=== PATIENT | female | born 1975 | race Caucasian/White ===

== ENCOUNTER 2018-08-31 13:45 | Outpatient (REF) | payer MEDICAID, SELFPAY ==
[2018-08-31 21:56] LABS: Abs Immature Grans 0.03 k/cumm (0.0-0.09); Absolute Basophil Count 0.04 k/cumm (0.0-0.2); Absolute Eosinophil Count 0.51 k/cumm (0.0-0.7); Absolute Lymphocyte Count 2.38 k/cumm (1.2-3.4); Absolute Monocyte Count 0.78 k/cumm (0.11-0.7); Basophils % 0.3; Eosinophils % 4.3; HCT 39.9 % (36.0-46.0); Immature Grans % 0.3; Lymphocytes % 20.1; Mean Corp. HGB Concentration 32.6 g/dL (32.0-36.0); Mean Corpuscular Hemoglobin 29.8 pg (27.0-33.0); Mean Corpuscular Volume 91.5 fL (80-95); Mean Platelet Volume 9.9 fL (8.0-11.0); Monocytes % 6.6; Neutrophils % 68.4; Platelet Count 351 x1000/uL (130-400); RBC 4.36 m/cumm (4.00-5.20); RBC Distribution Width 13.1 % (11.7-14.6); White Blood Cell Count 11.86 k/cumm (4.4-10.8)
[2018-08-31 21:58] LABS: Absolute Neutrophil Count 8.11 k/cumm (1.2-6.7); Iron 49 ug/dL (50-175); Total Iron Binding Capacity 365 ug/dL (250-450); Transferrin Sat 13 % (15-50)
[2018-08-31 22:11] LABS: Ferritin 65 ng/mL (8-388); TSH (W/Ref FT4) 1.42 uIU/mL (0.358-3.74)
== END 2018-08-31 14:05 ==
LOC: NCHCN 13:45
PROVIDERS: PCP Internal Medicine; Visit Provider Internal Medicine
DX: R51 Headache (principal); N92.0 Excessive and frequent menstruation with regular cycle; R53.83 Other fatigue
CPT/HCPCS: 82728; 83540; 83550; 84443; 85025

== ENCOUNTER 2018-10-03 13:19 | Outpatient (CLI) | payer MEDICAID, SELFPAY ==
--- NOTE | 2018-10-03 13:33 | DI.RAD_ITS ---
SYMPTOMS/DIAGNOSIS: COUGH, R05 PA AND LATERAL CHEST: The heart size and pulmonary vasculature are within normal limits. The lungs are clear. No effusions or pneumothoraces are identified. Note is made of pectus excavatum deformity. The bones are intact. IMPRESSION: No acute pulmonary process.
== END 2018-10-03 13:39 ==
PROVIDERS: PCP Internal Medicine; Visit Provider Nurse Practitioner
DX: R05 Cough (principal)
CPT/HCPCS: 71046

== ENCOUNTER 2018-10-04 08:36 | Outpatient (CLI) | payer MEDICAID, SELFPAY ==
[2018-10-04 09:10] LABS: Abs Immature Grans 0.02 k/cumm (0.0-0.09); Absolute Basophil Count 0.06 k/cumm (0.0-0.2); Absolute Eosinophil Count 0.47 k/cumm (0.0-0.7); Absolute Lymphocyte Count 2.58 k/cumm (1.2-3.4); Absolute Monocyte Count 0.65 k/cumm (0.11-0.7); Absolute Neutrophil Count 5.72 k/cumm (1.2-6.7); Basophils % 0.6; Eosinophils % 4.9; HCT 38.1 % (36.0-46.0); HGB 12.5 g/dL (12.0-15.5); Immature Grans % 0.2; Lymphocytes % 27.2; Mean Corp. HGB Concentration 32.8 g/dL (32.0-36.0); Mean Corpuscular Hemoglobin 29.8 pg (27.0-33.0); Mean Corpuscular Volume 90.7 fL (80-95); Mean Platelet Volume 9.1 fL (8.0-11.0); Monocytes % 6.8; Neutrophils % 60.3; Platelet Count 358 x1000/uL (130-400); RBC Distribution Width 13.2 % (11.7-14.6)
[2018-10-04 09:56] LABS: D-Dimer 618 ng/mlFEU (<500)
== END 2018-10-04 08:56 ==
LOC: LBO 08:36 → NCHCO 08:39
PROVIDERS: PCP Internal Medicine; Visit Provider Nurse Practitioner Family
DX: R07.9 Chest pain, unspecified (principal); R05 Cough
CPT/HCPCS: 36415; 85025; 85379

== ENCOUNTER 2018-10-04 12:56 | Outpatient (CLI) | payer MEDICAID, SELFPAY ==
--- NOTE | 2018-10-04 13:30 | DI.CT_ITS ---
SYMPTOMS/DIAGNOSIS: CHEST PAIN, ELEVATED D DIMER PE CHEST CT: CT angiography was performed with multi slice acquisition and multi planar and 3D reconstruction. CT scan of the chest was performed according to the pulmonary embolus protocol. Comparison chest x-ray is 10/03/18. There is no evidence of a pulmonary embolus. The thoracic aorta is of normal caliber. No evidence of thoracic aortic aneurysm or dissection is present. The heart size is within normal limits. No significant pericardial effusion is seen. No evidence of right ventricular dysfunction is present. There is no thoracic adenopathy, pleural effusion or pneumothorax present. Dependent atelectatic changes are seen in the lung bases. No focal consolidating infiltrates are seen. The tracheobronchial tree is unremarkable. The bones are intact. IMPRESSION: Negative examination. No evidence of a pulmonary embolus, thoracic aortic dissection or aneurysm. No acute pulmonary process.
[2018-10-04] MEDS: Omnipaque 350 MG/ML 100 ML BTL IJ (13:52)
== END 2018-10-04 13:16 ==
PROVIDERS: PCP Internal Medicine; Visit Provider Nurse Practitioner Family
DX: R07.9 Chest pain, unspecified (principal); R79.1 Abnormal coagulation profile
CPT/HCPCS: 71275; J3490

== ENCOUNTER 2019-01-12 12:42 | Outpatient (REF) | payer MEDICAID, SELFPAY ==
--- NOTE | 2019-01-12 08:45 | PAPFT_PTH ---
PATIENT: Cara Colon LOC: N U#:[id number] AGE/SX: 43/F ROOM: RE01/12/[address]: DANYA Jolley : 1975 BED: DIS: 01/12/2019 SPEC #: [id number] RECD: 01/12/19 12:52 STATUS: MOSHE RELuisa #: [id number] LIDIA: 01/12/19 08:[address]: Mei Mcgowan DEPT: [facility] RECD BY: Harry Nelson ENTERED: 01/12/19 12:52 SP TYPE: PAPFT HÉCTOR DR: Jermaine Wallace Tissues: 1 - CX/ENDOCX FOR PAP SMEARS Procedures: PAP THIN PREP/[facility] Screening Comments: [id number]
[2019-01-13 13:46] LABS: Chlamydia Result Negative; GC Result Negative; Specimen Description CERVIX
== END 2019-01-12 13:02 ==
LOC: LBN 12:42
PROVIDERS: PCP Internal Medicine; Visit Provider Nurse Practitioner Family
DX: Z11.3 Encounter for screening for infections with a predominantly sexual mode of transmission (principal); Z12.4 Encounter for screening for malignant neoplasm of cervix; Z11.51 Encounter for screening for human papillomavirus (HPV)
CPT/HCPCS: 87491; 87591; 88142

== ENCOUNTER 2019-04-05 14:05 | Outpatient (REF) | payer MEDICAID, SELFPAY | END 2019-04-05 14:25 | LOC: LBN 14:05 | PROVIDERS: PCP Internal Medicine; Visit Provider Nurse Practitioner Women's Health | DX: R30.0 Dysuria (principal) | CPT/HCPCS: 87086 ==

== ENCOUNTER 2019-06-30 02:49 | Outpatient (CLI) | payer MEDICAID, SELFPAY ==
--- NOTE | 2019-06-30 | PFT_ITS ---
PULMONARY FUNCTION TEST REPORT Patient - Cara Colon DATE OF SERVICE 06/30/2019 REQUESTING PROVIDER Codi Loza NP INTERPRETATION OF STUDY Spirometry shows no evidence of obstructive airways disease. No bronchodilator testing was carried out. LUNG VOLUMES - Lung volumes show no evidence of restriction. DIFFUSION CAPACITY- Normal. AIRWAY RESISTANCE - Normal. IMPRESSION Normal pulmonary function study. Clinical correlation recommended. Rupa Rasmussen M.D. JUAN/ T- 07/06/2019
== END 2019-06-30 03:09 ==
PROVIDERS: PCP Internal Medicine; Visit Provider Nurse Practitioner Family
DX: R05 Cough (principal); R07.89 Other chest pain; Z87.891 Personal history of nicotine dependence
CPT/HCPCS: 94150; 94726; 94729; 94010

== ENCOUNTER 2019-07-05 00:39 | Outpatient (CLI) | payer MEDICAID, SELFPAY ==
--- NOTE | 2019-07-05 08:10 | DI.MRI_ITS ---
SYMPTOMS/DIAGNOSIS: WORSENING HEADACHES DESPITE TREATMENT, R51 MRI OF THE BRAIN: T 2 sagittal, T 1, T 2, FLAIR diffusion and gradient echo axial sequences were performed. No intracranial hemorrhage, mass or infarct is seen. The ventricles are normal in size. There is normal pelayo/white matter differentiation. There are no abnormal high signal lesions in the white matter or areas of restricted diffusion. The vascular flow voids appear intact. The orbits, sinuses and pituitary are unremarkable. IMPRESSION: Negative MRI of the brain.
== END 2019-07-05 00:59 ==
PROVIDERS: PCP Internal Medicine; Visit Provider Nurse Practitioner Adult Health
DX: R51 Headache (principal)
CPT/HCPCS: 70551

== ENCOUNTER 2019-07-28 15:29 | Outpatient (REF) | payer MEDICAID, SELFPAY | END 2019-07-28 15:49 | LOC: LBN 15:29 | PROVIDERS: PCP Internal Medicine; Visit Provider Obstetrics & Gynecology | DX: N39.0 Urinary tract infection, site not specified (principal) | CPT/HCPCS: 87086 ==

== ENCOUNTER 2019-09-06 17:48 | Outpatient (REF) | payer MEDICAID, SELFPAY ==
[2019-09-06 21:27] LABS: HCT 38.1 % (36.0-46.0); HGB 12.3 g/dL (12.0-15.5); Mean Corp. HGB Concentration 32.3 g/dL (32.0-36.0); Mean Corpuscular Hemoglobin 28.9 pg (27.0-33.0); Mean Corpuscular Volume 89.4 fL (80-95); Mean Platelet Volume 9.5 fL (8.0-11.0); Platelet Count 415 x1000/uL (130-400); RBC 4.26 m/cumm (4.00-5.20); White Blood Cell Count 9.04 k/cumm (4.4-10.8)
[2019-09-06 21:38] LABS: Anion Gap 13.4 mmol/L (3-11); BUN 15 mg/dL (7-18); CO2 20.6 mmol/L (21.0-32.0); CREATININE 0.82 mg/dL (0.55-1.02); Chloride 106 mmol/L (98-107); Glucose 80 mg/dL (70-100); Potassium 4.3 mmol/L (3.5-5.1); Sodium 140 mmol/L (136-145)
[2019-09-06 21:39] LABS: Iron 57 ug/dL (50-175); Total Iron Binding Capacity 367 ug/dL (250-450); Transferrin Sat 16 % (15-50)
== END 2019-09-06 18:08 ==
LOC: NCHCN 17:48
PROVIDERS: PCP Internal Medicine; Visit Provider Nurse Practitioner Family
DX: R05 Cough (principal); R55 Syncope and collapse
CPT/HCPCS: 80048; 85027; 83540; 83550

== ENCOUNTER 2020-07-17 12:02 | Outpatient (REF) | payer MEDICAID, SELFPAY | END 2020-07-17 12:22 | LOC: LBN 12:02 | PROVIDERS: PCP Internal Medicine; Visit Provider Obstetrics & Gynecology | DX: R30.0 Dysuria (principal) | CPT/HCPCS: 87086 ==

== ENCOUNTER 2020-09-16 16:55 | Outpatient (REF) | payer MEDICAID, SELFPAY ==
[2020-09-21 00:26] LABS: Patient Race White; SARS-CoV-2 RNA Undetected (Undetected); SARS-CoV-2 Specimen Source Nasal
== END 2020-09-16 17:15 ==
LOC: NCHCN 16:55
PROVIDERS: PCP Internal Medicine; Visit Provider Internal Medicine
DX: Z20.828 Contact with and (suspected) exposure to other viral communicable diseases (principal)
CPT/HCPCS: U0003

== ENCOUNTER 2020-10-09 07:12 | Observation (INO) | payer MEDICAID, SELFPAY ==
[2020-10-09] VITALS (49 sets, daily range): BP systolic 106–164; BP diastolic 66–120; PULSE 49–70; RESP 13–22; TEMP 36.4–36.7; O2SAT 91–100
--- NOTE | 2020-10-09 07:00 | RT.EKG_ITS ---
APPROVED REPORT Exam: Resting ECG Patient Location: E HR:55 bpm ECG Measurements Heart Rate 55 AXIS WY 189 P 19 QRSd 92 QRS 37 QT 477 T 9 QTc 457 Conclusion Sinus bradycardia...rate< 60 Nonspecific T abnormalities, anterior leads...T <-0.10mV, V2-V4
--- NOTE | 2020-10-09 07:29 | ED.GENADUL_ITS ---
Discharge Plan Disposition Patient Disposition: [facility] INPATIENT Condition: Stable Discharge Details Clinical Impression: Chest pain Admit Date/Time: 10/09/20 10:16 Admit Provider: Adan Deras Attending Provider: Adan Deras Primary Care Provider: Jermaine Wallace ED Provider: Thang Horne Medical Decision Making <Marvin Iglesias MD - Last Filed: 10/09/20 07:50> 44 yo female with hx of gerd, migraines, smoker who comes in with chest pain radiating to the back and epigastric area that woke her from sleep around 5am and has no prior cardiac history. She states she went to bed feeling well and denies recent cough, chills, fevers. She denies any significant dyspnea. She states she feels a pressure in the anterior chest radiating to the back and also a knot in the epigastric area with nausea. .She has no diaphoresis and arrives HD stable speaking in full sentences. She has soft abdomen with mild tenderness in the epigastric region. She has clear lungs without murmurs. No jvd, leg swelling or calf tenderness. Her presentation could be due to an nstemi, will obtain troponin. Given the pain radiates to the back and abdomen concern for possible dissection, will obtain CTA. No hypoxia, tachycardia, pleuritic pain or evidence of dvt on exam so doubt PE. Other potential causes include gerd, gastritis and also possible esophageal spasm but will evaluate for more serious life threatening causes of her symptoms patient signed out to oncoming provider pending labs, imaging results and disposition Differential Diagnosis Differential Diagnosis: nstemi, gerd, pancreatitis, dissection Medical Records Medical records reviewed: Yes I reviewed the patient's medical records. ECG Data Attestation: I personally reviewed and interpreted this ECG (s) as follows: Prior ECG tracings: not available for review Interpretation: sinus bradycardia rate of 55 pr 189, qtc 457 flipped t waves in the anterior leads no olds to compare it to <Thang Horne MD - Last Filed: 10/09/20 12:40> Received signout from Dr Iglesias, please see his note regarding details of initial presentation, exam, plan of care. Pain improved with fentanyl, zofran. Repeat EKG with persistent T wave inversions, unchanged. CT chest: No acute findings, see formal report Labs: White count 11, hematocrit 40, platelets 383. Chemistries unremarkable. AST 13, ALT 13, lipase 89, troponin negative, BNP 97 She does have some mild persistent discomfort rated 1-2 out of 10, down from 8 out of 10. Patient given aspirin. I feel she is best served by admission for further observation and management. Lab Data Lab results reviewed: Yes I reviewed the patient's lab results. Labs: Laboratory Results - last 24 hr 10/09/20 10/09/20 10/09/20 07:20 07:20 07:20 WBC 11.32 H RBC 4.42 Hgb 13.2 Hct 40.8 MCV 92.3 MCH 29.9 MCHC 32.4 RDW 13.9 Plt Count 383 MPV 8.8 Immature Gran % 0.4 Neutrophils % 62.5 Lymphocytes % 22.3 Monocytes % 9.2 Eosinophils % 4.9 Basophils % 0.7 Nucleated RBC % 0 Absolute Neutrophils 7.08 H Absolute Lymphocytes 2.52 Absolute Monocytes 1.04 H Absolute Eosinophils 0.55 Absolute Basophils 0.08 PT 9.5 INR 0.9 APTT 24.7 Sodium 137 Potassium 4.1 Chloride 103 Carbon Dioxide 27.1 Anion Gap 6.9 BUN 14 Creatinine 1.08 H Estimated GFR/1.73 m2 55.64 Glucose 114 H Calcium 9.0 Magnesium 2.0 Total Bilirubin 0.2 AST 13 L ALT 13 L Alkaline Phosphatase 80 Troponin I < 0.05 NT-Pro-B Natriuret Pep 97 Total Protein 7.8 Albumin 3.6 Lipase 89 HPI <Marvin Iglesias MD - Last Filed: 10/09/20 07:50> General Mode of arrival: ambulatory . Date/Time Provider Initiated Documentation: 10/09/20 07:13 . Limitations to Documentation: no limitations . Information obtained by: patient . History of Present Illness 44 year old F presents to the emergency department with the chief complaint of chest pain, described as moderate, Patient started experiencing this hour(s) (2) and it has been constant. No relieving factors improve symptom(s), No exacerbating factors reported . Patient did receive the following treatments prior to arrival, none Related Data Home Medications Medication Instructions Recorded Confirmed escitalopram oxalate 20 mg tablet 20 mg PO DAILY 01/12/19 10/09/20 triamcinolone acetonide 0.1 % 1 applic TP BID 04/05/19 10/09/20 topical cream levonorgestrel 20 mcg/24 hours (6 1 device IY ONCE 04/18/19 10/09/20 yrs) 52 mg intrauterine device hydroxyzine HCl 10 mg tablet 20 mg PO HS tab 08/08/19 10/09/20 cholecalciferol (vitamin D3) 25 1,000 unit PO DAILY 12/14/19 10/09/20 mcg (1,000 unit) tablet omeprazole 20 mg capsule,delayed 20 mg PO DAILY cap 06/13/20 10/09/20 release erenumab-aooe 140 mg/mL 140 mg SC QMONTH #1 ml 09/11/20 10/09/20 subcutaneous auto-injector prochlorperazine maleate 5 - 10 mg PO Q8H PRN 10/09/20 10/09/20 Previous Rx's Medication Instructions Recorded erenumab-aooe 140 mg/mL 140 mg SC QMONTH #1 ml 09/11/20 subcutaneous auto-injector Allergies Allergy/AdvReac Type Severity Reaction Status Date / Time Purple Makeup AdvReac Intermediate Eyes blew Uncoded 10/09/20 07:22 up General Stated Complaint: Chest Pain DESIRE: 2 Review of Systems <Marvin Iglesias MD - Last Filed: 10/09/20 07:50> All systems reviewed & are unremarkable except as noted in HPI and below Constitutional Constitutional: Denies chills, Denies fever(s) and Denies weakness Cardiovascular Cardiovascular: Denies dyspnea Respiratory Respiratory: Denies cough and Denies dyspnea Musculoskeletal Musculoskeletal: Denies joint swelling Neurologic Neurologic: Denies weakness Psychiatric Psychiatric: Denies depression PFSH <Marvin Iglesias MD - Last Filed: 10/09/20 07:50> Medical History (Updated 10/09/20 @ 07:35 by Marvin Iglesias MD) Anxiety Depression GERD (gastroesophageal reflux disease) Hip pain, right Menorrhagia Migraine headache without aura Personal history of cervical dysplasia (06/08/13) 2010 TERRY II Family History Mother Essential hypertension Breast cancer HER2 Grandmother Pancreatic cancer Maternal Diabetes Grandmother Ovarian cancer paternal Daughter Migraines Social History Smoking/Tobacco Use Status: Current every day Tobacco Type: cigarettes Smoking risk assessment performed?: Yes Alcohol Intake: current Alcohol Intake frequency: 0-2 drinks per day Alcohol type: beer Drug use: Never Substance use type: does not use Current gender identity: female Seatbelt use: always Do you feel safe at home: Yes Do you feel safe in your relationship?: Yes Female Reproductive History Menstrual Duration of menses: 8-10 days control method: progestin IUCD and other History History 2 Para 2 Hx # Term Pregnancies Multiple births Hx # Pregnancies Ectopic pregnancies AB induced Hx Number of Living Children AB spontaneous Exam <Marvin Iglesias MD - Last Filed: 10/09/20 07:50> Const General: no acute distress Orientation: alert HENMT Head: normal to inspection Ears: external ears normal General nose exam: external nose normal Mouth: moist mucous membranes Eyes General: appearance normal, both eyes and all related structures Neck Neck: normal visual inspection Resp Effort & Inspection: normal respiratory effort and able to speak in complete sentences Cardio Rate: regular rate GI Palpation: soft Skin General skin exam: no rashes or lesions noted Neuro General: patient alert and patient oriented x3 Extrem General: normal to inspection Psych Mental Status: mental status grossly normal Course <Marvin Iglesias MD - Last Filed: 10/09/20 07:50> Vital Signs Vital signs: Vital Signs Temperature 36.4 C L 10/09/20 07:16 Pulse 65 10/09/20 07:16 Respiratory Rate 18 10/09/20 07:16 Blood Pressure 164/89 H 10/09/20 07:16 Pulse Oximetry 100 10/09/20 07:16 Temperature 36.4 C L 10/09/20 07:16 Temperature Source Temporal Artery Scan 10/09/20 07:16 Pulse 65 10/09/20 07:16 Respiratory Rate 18 10/09/20 07:16 Respiratory Effort Non-Labored 10/09/20 07:22 Respiratory Depth Normal 10/09/20 07:22 Respiratory Pattern Normal 10/09/20 07:22 Blood Pressure 164/89 H 10/09/20 07:16 Blood Pressure Position Supine 10/09/20 07:16 Pulse Oximetry 100 10/09/20 07:16 Oxygen Delivery Method Room Air 10/09/20 07:16 Oxygen Flow Rate 0 10/09/20 07:16 Pain Level 8 10/09/20 07:16 Sign Out <Marvin Iglesias MD - Last Filed: 10/09/20 07:50> Sign Out Data: Sign Out Comment: chest pain radiating to the back, pending labs and imaging, dispo Last updated by Marvin Iglesias MD at 10/09/20 07:35
[2020-10-09] MEDS: Ondansetron 4 MG/2 ML VIAL IVP (07:34)
[2020-10-09 07:37] LABS: Abs Immature Grans 0.05 10^3/uL (0.0-0.06); Absolute Basophil Count 0.08 10^3/uL (0.0-0.2); Absolute Monocyte Count 1.04 10^3/uL (0.1-0.8); Basophils % 0.7; Eosinophils % 4.9; HCT 40.8 % (36.0-46.0); HGB 13.2 g/dL (11.2-15.7); Immature Grans % 0.4; Lymphocytes % 22.3; MCH 29.9 pg (27.0-33.0); MCHC 32.4 % (32.0-36.0); MCV 92.3 fL (80-95); MPV 8.8 fL (8.0-11.0); Monocytes % 9.2; Neutrophils % 62.5; Nucleated RBC 0 %; Platelet Count 383 10^3/uL (130-400); RBC 4.42 10^6/uL (3.93-5.22); RDW 13.9 % (11.7-14.6); WBC 11.32 10^3/uL (4.4-10.8)
[2020-10-09] MEDS: fentaNYL 100 MCG/2 ML VIAL 50 MCG IVP (07:39)
[2020-10-09 07:41] LABS: Absolute Eosinophil Count 0.55 10^3/uL (0.0-0.7); Absolute Lymphocyte Count 2.52 10^3/uL (1.2-3.4); Absolute Neutrophil Count 7.08 10^3/uL (1.2-6.7)
[2020-10-09 07:48] LABS: INR 0.9 (0.9-1.1); PTT Activated 24.7 sec (21.0-27.5); Prothrombin Time 9.5 sec (9.3-11.0)
[2020-10-09 07:59] LABS: ALT 13 U/L (14-59); AST 13 U/L (15-37); Albumin 3.6 g/dL (3.4-5.0); Alkaline Phosphatase 80 U/L (46-116); Anion Gap 6.9 mmol/L (3-11); BUN 14 mg/dL (7-18); Bilirubin, Total 0.2 mg/dL (0.2-1.0); CO2 27.1 mmol/L (21.0-32.0); CREATININE 1.08 mg/dL (0.55-1.02); Chloride 103 mmol/L (98-107); Estimated GFR 55.64 (mL/min/1.73m2); Glucose 114 mg/dL (74-106); Lipase 89 U/L (73-393); NT-proBNP 97 pg/mL (<300); Potassium 4.1 mmol/L (3.5-5.1); Sodium 137 mmol/L (136-145); Total Protein 7.8 g/dL (6.4-8.2); Troponin I < 0.05 ng/mL (<0.06)
--- NOTE | 2020-10-09 08:00 | RT.EKG_ITS ---
APPROVED REPORT Exam: Resting ECG Patient Location: E HR:61 bpm ECG Measurements Heart Rate 61 AXIS MI 212 P -8 QRSd 92 QRS 36 QT 453 T 5 QTc 457 Conclusion Sinus rhythm Borderline T abnormalities, diffuse leads...T flat/neg
--- NOTE | 2020-10-09 08:00 | DI.CT_ITS ---
EXAM: CT THORAX ABD/PEL CTA CLINICAL HISTORY: chest pain radiating to the back and epigastrum. TECHNIQUE: Imaging Protocol: Axial CT angiography was performed with multi-slice acquisition and m ulti-planar and/or 3D reconstructions. CONTRAST MATERIAL: Intravenous: Omnipaque 350 Contrast volume:100 ml Oral: None FINDINGS: CHEST: Pulmonary arteries: No intraluminal filling defects. LUNGS: Clear. No infiltrates or nodules. No pleural effusions. MEDIASTINUM: There is no hilar nor mediastinal adenopathy. Visualized thyroid unremarkable. CARDIAC: Heart size is normal. There is no pericardial effusion.Caliber of the thoracic aorta is wit hin normal limits. No evidence of aortic dissection. OSSEOUS: No significant osseous lesions.. ABDOMEN: There is no ascites. LIVER: There are no focal hepatic lesions nor dilatation of intrahepatic ducts. GALLBLADDER/BILIARY: No obvious gallbladder pathology. CBD is not dilated. PANCREAS: No evidence of pancreatic mass nor dilatation of the pancreatic duct. SPLEEN: Spleen is not enlarged. There are no intrasplenic lesions. Splenic and portal veins are melendez nt. ADRENALS: There are no significant adrenal masses. KIDNEYS: No calculi nor hydronephrosis. No solid renal masses. No cysts evident. ABDOMINAL AORTA: Abdominal aorta is not enlarged and there is no kwangejpkvwveiw-qjzv-tahvrc adenopat hy. Aortoiliac segments are patent. ABDOMINAL WALL/GI: No evidence of signature anterior abdominal wall hernia. No bowel obstruction. PELVIS: LYMPH NODES: There is no intrapelvic nor inguinal adenopathy. GI: No evidence of appendicitis.No evidence of sigmoid diverticulitis. URINARY BLADDER: No calculi nor masses evident REPRODUCTIVE: IUD is noted in the uterine cavity. No adnexal masses nor free fluid in the cul-de-sac . OSSEOUS: No significant osseous lesions. IMPRESSION: 1. No evidence of pulmonary embolus nor pulmonary infarction. 2. No pleural effusions. No aneurysm no evidence of aortic dissection 3. No significant acute findings in the abdomen and pelvis. 4. IUD noted in the uterine cavity. RADIATION DOSE DELIVERED: 1,194.98mGy.cm Total DLP DATA REPOSITORY: All CT scans at this facility are submitted to the National Radiology Data Registry (NRDR) Dose Index Registry (DIR) with the [employer] (ACR). RADIATION OPTIMIZATION: All CT scans at this facility use at least one of these dose optimization te chniques: automated exposure control; mA and/or kV adjustment per patient size (includes targeted exa ms where dose is matched to clinical indication); or iterative reconstruction.
[2020-10-09] MEDS: Normal Saline - Diluent 50 ML VIAL IV (08:12)
[2020-10-09] MEDS: Omnipaque 350 MG/ML 100 ML BTL IJ (08:13)
[2020-10-09] MEDS: Aspirin 325 MG TAB PO (08:55)
[2020-10-09 09:50] LABS: Troponin I < 0.05 ng/mL (<0.06)
[2020-10-09 11:13] LABS: Hemoglobin A1C 5.3 % (<5.7)
[2020-10-09 11:14] LABS: Calculated LDL 88 mg/dL (<100); Cholesterol 189 mg/dL (<200); HDL Cholesterol 79 mg/dL (40-60); Triglyceride 111 mg/dL (<150)
[2020-10-09] MEDS: Acetaminophen 325 MG TAB PO ×2 (12:17→17:31)
[2020-10-09] MEDS: Enoxaparin 40 MG/0.4 ML SYR SC (12:17)
[2020-10-09] MEDS: Prochlorperazine 5 MG TAB PO (13:52)
[2020-10-09 14:19] LABS: Troponin I < 0.05 ng/mL (<0.06)
--- NOTE | 2020-10-09 14:51 | HPE_ITS ---
Date of service: 10/09/20 Time of Service: 14:51 Assessment and Plan Assessment and plan (1) Chest pain: Status: Acute Assessment and plan: Atypical chest pain suggestive more of GERD or gallbladder disease. CT scan of her abdomen did not show any gallstones nor any pericholecystic fluid. At this point I am leaning more towards GERD. Patient will have a stress MPI treadmill study in the morning if this is negative she will be discharged home for follow-up with GI or surgery for an EGD. Qualifiers: Chest pain type: unspecified Qualified Code(s): R07.9 - Chest pain, uns pecified History of Present Illness History of Present Illness Chief Complaint: Chest pain Narrative: 44-year-old female smoker with history of depression anxiety disorder as well as symptoms referrable to GERD but without a formal diagnosis. Patient presents emergency department with acute substernal chest pain described as a pressure with radiation into the interscapular area. There was no associated dyspnea. She did have nausea but without vomiting and no abdominal pain. Patient states that her usual symptoms of GERD or not heartburn or pain but more coughing after heavy meals particularly if she eats before lying down. She says if she does not take her omeprazole she will wake up coughing during the night. Occasionally she will have water brash symptoms. She has not had a formal evaluation such as an EGD. Patient is fairly active gets mildly dyspneic if she has to go up and down her stairs several times but has no exertional chest pain or pressure. She denies any personal history of diabetes mellitus or hypertension or ischemic heart disease. She is a smoker of about a third of a pack per day. She began smoking at the age of 20 but had quit for several years and only recently restarted smoking. Her maternal grandmother did have angina beginning in her 60s. Her father had history of gallbladder disease including gallstone pancreatitis. Her brother has a history of colitis. Evaluation in the ER included EKG as well as routine labs as well as the CT angiogram of her chest abdomen and pelvis. CT of the chest abdomen pelvis showed no pulmonary embolism no pleural effusions and no aortic aneurysm or dissection and no acute findings in her abdomen or pelvis. She has an IUD in the uterine cavity. There is no evidence of diverticulitis or appendicitis and no biliary ductal dilatation and no hepatic lesions and no gallbladder patho logy. Labs include CBC showed a borderline elevated white count of 11,300 no anemia. CMP demonstrated normal liver enzymes and a normal lipase of 89. Serial troponin I levels have been negative x3 sets. Electrolytes BUN and creatinine were unremarkable. Patient is admitted to the medical/surgical floor on telemetry over for overnight monitoring and scheduling of a stress MPI study in the morning. Her EKG on admission showed nonspecific T wave abnormalities in the anterior precordial leads V1 through V3. Review of Systems All systems reviewed & are unremarkable except as noted in HPI and below PFSH Medical History Anxiety Depression Family history of breast cancer (06/04/16) Mother Dx at 59 GERD (gastroesophageal reflux disease) Not formally diagnosed by any endoscopy. Empirically treated with omeprazole. Hip pain, right Menorrhagia Migraine headache without aura Personal history of cervical dysplasia (06/08/13) 2010 TERRY II Family History Mother Essential hypertension Breast cancer HER2 Grandmother Pancreatic cancer Maternal Diabetes Grandmother Ovarian cancer paternal Daughter Migraines Social History Smoking/Tobacco Use Status: Current every day Tobacco Type: cigarettes Smoking risk assessment performed?: Yes Alcohol Intake: current Alcohol Intake frequency: 0-2 drinks per day Alcohol type: beer Drug use: Never Substance use type: does not use Current gender identity: female Seatbelt use: always Do you feel safe at home: Yes Do you feel safe in your relationship?: Yes Female Reproductive History Menstrual Duration of menses: 8-10 days control method: progestin IUCD and other History History 2 Para 2 Hx # Term Pregnancies Multiple births Hx # Pregnancies Ectopic pregnancies AB induced Hx Number of Living Children AB spontaneous Meds Home Medications and Allergies Home Medications Medication Instructions Recorded Confirmed Type escitalopram oxalate 20 mg tablet 20 mg PO DAILY 01/12/19 10/09/20 History triamcinolone acetonide 0.1 % 1 applic TP BID 04/05/19 10/09/20 History topical cream levonorgestrel 20 mcg/24 hours (6 1 device IY ONCE 04/18/19 10/09/20 History yrs) 52 mg intrauterine device hydroxyzine HCl 10 mg tablet 20 mg PO HS tab 08/08/19 10/09/20 History cholecalciferol (vitamin D3) 25 1,000 unit PO DAILY 12/14/19 10/09/20 History mcg (1,000 unit) tablet omeprazole 20 mg capsule,delayed 20 mg PO DAILY cap 06/13/20 10/09/20 History release erenumab-aooe 140 mg/mL 140 mg SC QMONTH #1 ml 09/11/20 10/09/20 Rx subcutaneous auto-injector prochlorperazine maleate 5 - 10 mg PO Q8H PRN 10/09/20 10/09/20 History Allergies Allergy/AdvReac Type Severity Reaction Status Date / Time Purple Makeup AdvReac Intermediate Eyes blew Uncoded 10/09/20 07:22 up Exam Narrative Exam Narrative: Young female who was napping when I walked in the room but easily awakened and was alert and oriented person place time circumstance. HEENT is unremarkable. Neck is supple nontender no cervical adenopathy Carotids normal pulses no bruits. Lungs clear to auscultation Heart regular rate and rhythm without murmur rub or gallop Abdomen soft some mild epigastric tenderness without guarding or rebound tenderness. No palpable masses no organomegaly and no bruits Lower extremities without peripheral cyanosis or edema Neuro exam grossly intact Results Labs Result diagrams: 10/09/20 07:20 10/09/20 07:20 Labs: Laboratory Results - last 24 hr 10/09/20 10/09/20 10/09/20 07:20 07:20 07:20 WBC 11.32 H RBC 4.42 Hgb 13.2 Hct 40.8 MCV 92.3 MCH 29.9 MCHC 32.4 RDW 13.9 Plt Count 383 MPV 8.8 Immature Gran % 0.4 Neutrophils % 62.5 Lymphocytes % 22.3 Monocytes % 9.2 Eosinophils % 4.9 Basophils % 0.7 Nucleated RBC % 0 Absolute Neutrophils 7.08 H Absolute Lymphocytes 2.52 Absolute Monocytes 1.04 H Absolute Eosinophils 0.55 Absolute Basophils 0.08 PT 9.5 INR 0.9 APTT 24.7 Sodium 137 Potassium 4.1 Chloride 103 Carbon Dioxide 27.1 Anion Gap 6.9 BUN 14 Creatinine 1.08 H Estimated GFR/1.73 m2 55.64 Glucose 114 H Hemoglobin A1c Calcium 9.0 Magnesium 2.0 Total Bilirubin 0.2 AST 13 L ALT 13 L Alkaline Phosphatase 80 Troponin I < 0.05 NT-Pro-B Natriuret Pep 97 Total Protein 7.8 Albumin 3.6 Triglycerides Total Cholesterol LDL Cholesterol, Calc HDL Cholesterol Lipase 89 10/09/20 10/09/20 10/09/20 07:20 07:20 09:22 WBC RBC Hgb Hct MCV MCH MCHC RDW Plt Count MPV Immature Gran % Neutrophils % Lymphocytes % Monocytes % Eosinophils % Basophils % Nucleated RBC % Absolute Neutrophils Absolute Lymphocytes Absolute Monocytes Absolute Eosinophils Absolute Basophils PT INR APTT Sodium Potassium Chloride Carbon Dioxide Anion Gap BUN Creatinine Estimated GFR/1.73 m2 Glucose Hemoglobin A1c 5.3 Calcium Magnesium Total Bilirubin AST ALT Alkaline Phosphatase Troponin I < 0.05 NT-Pro-B Natriuret Pep Total Protein Albumin Triglycerides 111 Total Cholesterol 189 LDL Cholesterol, Calc 88 HDL Cholesterol 79 Lipase 10/09/20 10/09/20 10:23 13:47 WBC RBC Hgb Hct MCV MCH MCHC RDW Plt Count MPV Immature Gran % Neutrophils % Lymphocytes % Monocytes % Eosinophils % Basophils % Nucleated RBC % Absolute Neutrophils Absolute Lymphocytes Absolute Monocytes Absolute Eosinophils Absolute Basophils PT INR APTT Sodium Potassium Chloride Carbon Dioxide Anion Gap BUN Creatinine Estimated GFR/1.73 m2 Glucose Hemoglobin A1c Calcium Magnesium Total Bilirubin AST ALT Alkaline Phosphatase Troponin I Cancelled < 0.05 NT-Pro-B Natriuret Pep Total Protein Albumin Triglycerides Total Cholesterol LDL Cholesterol, Calc HDL Cholesterol Lipase Last Vital Signs Temp 36.5 C 10/09/20 11:25 Pulse 64 10/09/20 12:14 Resp 18 10/09/20 11:25 BP 128/78 10/09/20 11:25 Pulse Ox 99 10/09/20 11:25 COVID-19 Screening Have you, or household traveled for leisure in last 14 days?: No Had IN PERSON contact w/suspected or confirmed C-19 person: No
[2020-10-09] MEDS: hydrOXYzine HCL 10 MG TAB 20 MG PO (21:21)
[2020-10-09] MEDS: Normal Saline Flush 10 ML SYR IVP (21:23)
[2020-10-10 03:53] VITALS: BP 119/72; PULSE 55; RESP 17; TEMP 36.3; O2SAT 97
--- NOTE | 2020-10-10 07:00 | DI.NM_ITS ---
APPROVED REPORT Exam: Pharmacologic Patient Location: In-Patient Room/Bed: 214 Stress Nurse: Heaven Shaver RN BMI: 28.81 Baseline Rhythm: Sinus Rhythm Indications: Chest pain. Medical History Medical History: Anxiety, Depression, GERD, Migraines. Cardiac Medications: Omeprazole. Allergies: No known drug allergies Cardiac Risk Factors: Smoking (current) Previous Cardiac Procedures: None. Pretest Chest Pain Characteristics: None. Exercise History: Sedentary Physical Disabilities: None. Lung Sounds: Clear to auscultation Heart Sounds: Regular Stress Test Details Test: Exercise stress converted to pharmacologic stress due to failure to obtain a diagnostic stress test. Reason for pharmacologic stress test: physical limitation. Nuclear Acquisition: Rest Tc-99m/Stress Tc-99m 1 day Rest Isotope: Tc-99m Sestamibi. Dose: 11.5 Date: 10/10/2020 Injection Time: 1330 Stress Isotope: Tc-99m Sestamibi. Dose: 33.0 Date: 10/10/2020 Injection Time: 1535 HR Resting HR Supine: 61 bpm Max Heart Rate (APMHR): 178 bpm Resting HR Standin bpm Target HR (85% APMHR): 151 bpm Max HR Achieved: 146 bpm % of APMHR: 82 Recovery HR: 88 bpm HR response to stress: Normal HR response to stress BP Resting BP Supine: 136/68 mmHg Resting BP Standin/70 mmHg Max BP: 140/72 mmHg Recovery BP: 122/68 mmHg BP response to stress: Normal blood pressure response to stress. ECG Resting ECG: Sinus Rhythm Ectopy: None. Stress ECG: Sinus Tachycardia ST Change: No significant ST segment changes noted. Arrhythmia: None. Recovery ECG: Sinus Rhythm Recovery ST Change: No significant ST segment changes noted. Recovery Arrhythmia: None. Clinical Reason for Termination: Dyspnea Stress Symptoms: Dyspnea Exercise duration: 6 min40 sec Highest Stage Reached: Stage 3: 3.4 mph at 14% grade. Exercise capacity: 8.54 METs Stress ECG Conclusion 1. Patient exercised for 7 minutes (9 METS). This was converted to a pharmacological stress test as patient was unable to reach target heart rate. 2. The EKG portion of this exam is nondiagnostic. Stress Test Summary STAGE Time (mins) Speed (mph) Grade (%) HR BP SYMPTOMS METS Supine 61 136/68 Standing 78 124/70 1 3 1.7 10 104 4.6 2 6 2.5 12 140 136/68 SOB. 7 1 min post Lexiscan injection 103 140/72 Dizziness 3 min post Lexiscan injection 91 138/70 Symptoms resolved. 6 min post Lexiscan injection 88 122/70 MPI Conclusion The patient's ejection fraction was 54% with stress. There were no wall motion abnormalities. The interpretation of the study is greatly affected by significant bowel uptake. There is no evidence of ischemia on the imaging portion of the exam. This likely represents a normal SPECT stress test.
[2020-10-10 07:04] VITALS: PULSE 54
[2020-10-10 07:45] VITALS: BP 104/66; PULSE 63; RESP 17; TEMP 37.2; O2SAT 96
[2020-10-10 08:28] LABS: COVID-19 RT-PCR UVMMC Result Negative (Negative)
[2020-10-10 11:24] VITALS: BP 118/73; PULSE 67; RESP 18; TEMP 36.9; O2SAT 99
--- NOTE | 2020-10-10 12:15 | PGE_ITS ---
Date of Service Date of service: 10/10/20 Time of Service: 12:15 Assessment and Plan Assessment and plan (1) Chest pain: Status: Acute Assessment and plan: Atypical chest pain suggestive more of GERD or gallbladder disease. CT scan of her abdomen did not show any gallstones nor any pericholecystic fluid. At this point I am leaning more towards GERD. Patient will have a stress MPI treadmill study this afternoon about 1:30 PM if this is negative she will be discharged home for follow-up with GI or surgery for an EGD. Qualifiers: Chest pain type: unspecified Qualified Code(s): R07.9 - Chest pain, unspecified Subjective Subjective Interval history since last seen: Patient denies any chest pain or pressure since admission and no shortness of breath. All of her troponins were negative. Patient is scheduled for a stress MPI treadmill for this afternoon at 1:30 PM. Assuming that this test is normal she will be discharged this afternoon and will need follow-up with her PCP to get referral to GI or surgery services for an EGD to evaluate her GERD. Patient is advised to double up her omeprazole to 40 mg daily pending getting an EGD. Exam Narrative Exam Narrative: Middle-age female who is alert and oriented person place time circumstance very pleasant in no discomfort. Lungs are clear to auscultation Heart regular rate and rhythm without murmur rub or gallop Abdomen soft nontender nondistended. Objective Last Vital Signs Temp 37.2 C 10/10/20 07:45 Pulse 63 10/10/20 07:45 Resp 17 10/10/20 07:45 BP 104/66 10/10/20 07:45 Pulse Ox 96 10/10/20 07:45 Laboratory Results - last 24 hr 10/09/20 10/09/20 10:30 13:47 Troponin I < 0.05 COVID-19 PCR Negative Nasopharyn COVID-19 PCR Not Applicable Ref Test Perform Site [facility] lab
[2020-10-10] MEDS: Enoxaparin 40 MG/0.4 ML SYR SC (12:47)
[2020-10-10] MEDS: Acetaminophen 325 MG TAB PO (14:21)
[2020-10-10] MEDS: Regadenoson 0.4 MG/5 ML SYR IVP (15:46)
[2020-10-10 16:24] VITALS: BP 113/68; PULSE 73; RESP 20; TEMP 36.8; O2SAT 97
--- NOTE | 2020-10-10 16:54 | DSE_ITS ---
Date of service: 10/10/20 Time of Service: 16:54 DS: Diagnosis Discharge Diagnosis (1) Chest pain: Status: Acute Asessment and Plan: serial troponins negative. MPI conclusion: EF 54%, no wall motion abnormalities no evidence of ischemia on imaging portion of exam, interpretation of study greatly affected by significant bowel uptake likely represents a normal SPECT stress test Discharge Plan Disposition Patient Disposition: HOME Condition: Stable Discharge Details Reason For Visit: CHEST PAIN Admit Date/Time: 10/09/20 10:16 Admit Provider: Adan Rees Attending Provider: Adan Rees Primary Care Provider: Jermaine Wallace Hospital Course Hospital Course: patient presented to ED for substernal chest pain, ED work up showed negative troponin and EKG as well as routine labs as well as the CT angiogram of her chest abdomen and pelvis. CT of the chest abdomen pelvis showed no pulmonary embolism no pleural effusions and no aortic aneurysm or dissection and no acute findings in her abdomen or pelvis. Her EKG on admission showed nonspecific T wave abnormalities in the anterior precordial leads V1 through V3. she was referred to observation on telemetry. remained hemodynamically stable with negative serial troponins. She underwent an MPI stress which showed no WMA, EF 54%, likely representing a normal study. She will be discharged home, advised to double her omeprazole and f/u outpatient with pcp for further work up, including EGD discussed with DR Rees Home Meds and New Rx's Prescriptions: Continued escitalopram oxalate [Lexapro] 20 mg tablet 20 mg PO DAILY RF: 0 cholecalciferol (vitamin D3) [Vitamin D3] 25 mcg (1,000 unit) tablet 1,000 unit PO DAILY RF: 0 Aimovig Autoinjector 140 mg/mL auto-injector 140 mg SC QMONTH Qty: 1 RF: 11 Mirena 20 mcg/24 hours (5 yrs) 52 mg intrauterine device 1 device IY ONCE RF: 0 hydroxyzine HCl 10 mg tablet 20 mg PO HS RF: 0 triamcinolone acetonide 0.1 % cream 1 applic TP BID RF: 0 prochlorperazine maleate 5 mg tablet 5 - 10 mg PO Q8H PRN (Reason: Headache) RF: 0 Changed omeprazole 20 mg capsule,delayed release(DR/EC) 40 mg PO DAILY Qty: 0 RF: 0 Discharge Instructions Instructions: Chest Pain (DC), GERD (Gastroesophageal Reflux Disease) (DC) Additional Instructions: double your omeprazole. do not eat within 2 hours of bedtime. Referrals: Jermaine Wallace MD [Primary Care Provider] - Activity:: Activity as Tolerated Equipment/Supplies:: No Equipment Needed Diet:: As Tolerated Discharge Orders Discharge Orders: Discharge Order (Routine); Ordered 10/10/20 Ordered By: Marry Craig DS: Summary Status at Discharge Functional status at discharge: independent ambulation Overall status at discharge: patient is back to baseline Mental Status: mental status grossly normal Speech and Movement: speech and movement normal Mood: congruent mood Affect: normal affect Exam Const General: cooperative, healthy appearing, comfortable and no acute distress Nutritional Appearance: overweight Orientation: alert, awake and oriented x3 HENMT Head: normal to inspection, normocephalic and atraumatic Resp Effort & Inspection: normal respiratory effort Cardio Rate: regular rate Rhythm: regular rhythm GI Inspection: normal to inspection Skin General skin exam: no rashes or lesions noted Neuro General: patient alert, patient awake, patient oriented x3 and moves all extremities Extrem General: normal to inspection and no pedal edema Psych Mental Status: mental status grossly normal Speech and Movement: speech and movement normal Mood: congruent mood Affect: normal affect DS: Data Vitals/I&O Vitals and I&O: Vital Signs Temperature 36.8 C 10/10/20 16:24 Temperature Source Tympanic 10/10/20 16:24 Pulse 73 10/10/20 16:24 Pulse Rhythm Regular 10/10/20 16:10 Pulse 52 L 10/09/20 11:01 Respiratory Rate 20 10/10/20 16:24 Respiratory Effort Non-Labored 10/10/20 16:10 Respiratory Depth Normal 10/10/20 16:10 Respiratory Pattern Normal 10/10/20 16:10 Blood Pressure 113/68 10/10/20 16:24 Blood Pressure Mean 82 10/09/20 11:01 Blood Pressure Position Supine 10/09/20 07:16 Pulse Oximetry 97 10/10/20 16:24 Oxygen Delivery Method Room Air 10/10/20 16:24 Oxygen Flow Rate 0 10/10/20 16:24 Pain Level 0 10/10/20 16:24 Intake & Output 10/09/20 10/10/20 10/10/20 23:59 11:59 23:59 Intake Total 490 / 500 480 / 480 Balance 490 / 500 480 / 480 Weight 83.6 kg Intake: IV Oral 480 / 480 480 / 480 Other: Comment pt independent with voiding RN did not assess Voiding Methods Toilet Toilet Data Completed and Pending Labs on day of discharge: Labs from last 24 hours 10/09/20 10:30 COVID-19 PCR Negative Nasopharyn COVID-19 PCR Not Applicable Ref Test Perform Site [facility] Medical History Anxiety Depression Family history of breast cancer (06/04/16) Mother Dx at 59 GERD (gastroesophageal reflux disease) Not formally diagnosed by any endoscopy. Empirically treated with omeprazole. Hip pain, right Menorrhagia Migraine headache without aura Personal history of cervical dysplasia (06/08/13) 2010 TERRY II Family History Mother Essential hypertension Breast cancer HER2 Grandmother Pancreatic cancer Maternal Diabetes Grandmother Ovarian cancer paternal Daughter Migraines Social History Smoking/Tobacco Use Status: Current every day Tobacco Type: cigarettes Smoking risk assessment performed?: Yes Alcohol Intake: current Alcohol Intake frequency: 0-2 drinks per day Alcohol type: beer Drug use: Never Substance use type: does not use Current gender identity: female Seatbelt use: always Do you feel safe at home: Yes Do you feel safe in your relationship?: Yes Female Reproductive History Menstrual Duration of menses: 8-10 days control method: progestin IUCD and other History History 2 Para 2 Hx # Term Pregnancies Multiple births Hx # Pregnancies Ectopic pregnancies AB induced Hx Number of Living Children AB spontaneous
== END 2020-10-10 17:27 | disposition home or self-care (01) ==
LOC: ER 09:01 → MS 11:15
PROVIDERS: Emergency Medicine; Admitting Provider Internal Medicine; Emergency Provider Emergency Medicine; PCP Internal Medicine; Visit Provider Internal Medicine
DX: R07.9 Chest pain, unspecified (principal); K21.9 Gastro-esophageal reflux disease without esophagitis; F32.9 Major depressive disorder, single episode, unspecified; F41.9 Anxiety disorder, unspecified; F17.210 Nicotine dependence, cigarettes, uncomplicated
CPT/HCPCS: 36415; 71275; 74177; 78452; 80053; 80061; 83690; 93005; 96374; 96375; 99217; 99219; 99225; 99285; J1650; U0003; 83036; 83735; 83880; 84484; 85025; 85610; 85730; 93010; 93017; G0378; J2405; J2785; J3010; J3490

== ENCOUNTER 2021-01-13 14:52 | Outpatient (REF) | payer MEDICAID, SELFPAY ==
--- NOTE | 2021-01-13 14:30 | PAPFT_PTH ---
PATIENT: Cara Colon LOC: [facility] U#:[id number] AGE/SX: 45/F ROOM: RE01/13/[address]: DANYA Jolley : 1975 BED: DIS: 01/13/2021 SPEC #: [id number] RECD: 01/13/21 17:18 STATUS: MOSHE REQ #: [id number] LIDIA: 01/13/21 14:[address]: Mei Mcgowan DEPT: [facility] Cytology RECD BY: Tiffany Villanueva ENTERED: 01/13/21 17:18 SP TYPE: PAPFT OTHR DR: Jermaine Wallace Tissues: 1 - CX/ENDOCX FOR PAP SMEARS Procedures: PAP THIN PREP/UVM Screening HPV DNA PROBE Comments: [id number]
[2021-01-15 14:08] LABS: Chlamydia Result Negative (Negative); GC Result Negative (Negative)
== END 2021-01-13 14:53 | disposition home or self-care (01) ==
LOC: LBN 14:52
PROVIDERS: PCP Internal Medicine; Visit Provider Nurse Practitioner Family
DX: Z11.3 Encounter for screening for infections with a predominantly sexual mode of transmission (principal); Z12.4 Encounter for screening for malignant neoplasm of cervix; Z11.51 Encounter for screening for human papillomavirus (HPV); Z87.410 Personal history of cervical dysplasia
CPT/HCPCS: 87491; 87591; 88142; 87624

== ENCOUNTER 2021-02-18 16:46 | Outpatient (REF) | payer MEDICAID, SELFPAY | END 2021-02-18 16:47 | disposition home or self-care (01) | LOC: LBN 16:46 | PROVIDERS: PCP Internal Medicine; Visit Provider Advanced Practice Midwife | DX: R30.0 Dysuria (principal); R31.9 Hematuria, unspecified | CPT/HCPCS: 87077; 87086; 87186 ==

== ENCOUNTER 2021-02-28 04:13 | Outpatient (CLI) | payer MEDICAID, SELFPAY ==
--- NOTE | 2021-02-28 | DI.RAD_ITS ---
Exam(s) XR SACRUM COCCYX XR LUMBAR SPINE COMPLETE EXAM: XR LUMBAR SPINE COMPLETE and XR sacrum coccyx CLINICAL HISTORY: LOW BACK PAIN, M54.5. TECHNIQUE: 2D digital imaging was performed. COMPARISON: CR XR SACRUM COCCYX from 02/28/2021 FINDINGS: There is normal alignment of the lumbar spine. No spondylolysis or spondylolisthesis. No acute frac ture or subluxation. Disc heights are well maintained. Small endplate osteophytes are seen at L3-4 and L4-L5. There are degenerative changes of the facets at L4-5 and L5-S1. The bones are normally m ineralized. The sacroiliac joints are well maintained. No erosions or ankylosis is present. No acu te fracture or subluxation is present in the sacrum or coccyx. Note is made of an IUD in the pelvis. IMPRESSION: Mild degenerative changes in the lumbar spine. DATA REPOSITORY: RADIATION DOSE DELIVERED:
== END 2021-02-28 04:33 ==
PROVIDERS: PCP Internal Medicine; Visit Provider Nurse Practitioner Family
DX: M54.5 Low back pain (principal); M47.817 Spondylosis without myelopathy or radiculopathy, lumbosacral region; Z97.5 Presence of (intrauterine) contraceptive device
CPT/HCPCS: 72110; 72220

== ENCOUNTER 2021-03-12 16:40 | Outpatient (REF) | payer MEDICAID, SELFPAY ==
[2021-03-12 22:08] LABS: Anion Gap 11.8 mmol/L (3-11); BUN 10 mg/dL (7-18); CO2 26.2 mmol/L (21.0-32.0); CREATININE 0.8 mg/dL (0.55-1.02); Calcium 9.2 mg/dL (8.5-10.1); Chloride 103 mmol/L (98-107); Glucose 94 mg/dL (74-106); Potassium 4.1 mmol/L (3.5-5.1); Sodium 141 mmol/L (136-145)
== END 2021-03-12 16:41 | disposition home or self-care (01) ==
LOC: NCHCN 16:40
PROVIDERS: PCP Internal Medicine; Visit Provider Nurse Practitioner Family
DX: R94.4 Abnormal results of kidney function studies (principal)
CPT/HCPCS: 80048

== ENCOUNTER 2021-04-09 13:11 | Outpatient (REF) | payer MEDICAID, SELFPAY | END 2021-04-09 13:12 | disposition home or self-care (01) | LOC: LBN 13:11 | PROVIDERS: PCP Internal Medicine; Visit Provider Nurse Practitioner Women's Health | DX: R30.0 Dysuria (principal) | CPT/HCPCS: 87086 ==

== ENCOUNTER 2021-09-27 15:26 | Emergency (ER) | payer MEDICAID, SELFPAY ==
[2021-09-27 15:30] VITALS: BP 141/87; PULSE 85; RESP 18; TEMP 36.6; O2SAT 99
--- NOTE | 2021-09-27 15:52 | ED.GENADUL_ITS ---
Discharge Plan Disposition Patient Disposition: HOME Condition: Improving Discharge Details Clinical Impression: Pharyngitis Primary Care Provider: Jermaine Wallace ED Provider: Thang Horne Home Meds and New Rx's Prescriptions: New penicillin V potassium 500 mg tablet 500 mg PO TID 9 Days Qty: 27 RF: 0 Continued escitalopram oxalate [Lexapro] 20 mg tablet 20 mg PO DAILY RF: 0 pantoprazole 20 mg tablet,delayed release (DR/EC) 20 mg PO DAILY PRNRF: 0 Ajovy Autoinjector 225 mg/1.5 mL auto-injector 225 mg subcut QMONTH RF: 0 Mirena 20 mcg/24 hours (5 yrs) 52 mg intrauterine device 1 device IY ONCE RF: 0 hydroxyzine HCl 10 mg tablet 20 mg PO HS RF: 0 celecoxib [Celebrex] 200 mg capsule 200 mg PO DAILY RF: 0 prochlorperazine maleate 5 mg tablet 5 - 10 mg PO Q8H PRN (Reason: Headache) Qty: 30 RF: 3 acetaminophen [Tylenol] 325 mg Tablet 1,000 mg PO PER PKG DIR RF: 0 Discharge Instructions Instructions: Pharyngitis (ED) Additional Instructions: You are given a single dose of dexamethasone today for its anti-inflammatory properties. Tylenol and/or ibuprofen as needed for pain. Continue small, frequent sips of fluids so that you maintain good hydration. Take antibiotics as prescribed. Return for any acute concerns. Medical Decision Making 45-year-old female presents with sore throat, fever and chills over 4 to 5 days. Similar to previous strep infections. She is tolerating liquids also her mouth, no change to voice. No drooling. She has an erythematous oropharynx consistent with the acute pharyngitis. Initial rapid strep test negative. Discussed with her I feel she will benefit from a single dose of dexamethasone and that the clinical presentation would not rule out strep test and therefore will treat with a course of penicillin. She understands homecare and is stable for discharge at this time HPI General Mode of arrival: ambulatory . Date/Time Provider Initiated Documentation: 09/27/21 15:30 . Limitations to Documentation: no limitations . Information obtained by: patient . History of Present Illness 45 year old F presents to the emergency department with the chief complaint of Sore throat, described as moderate and similar to prior episodes, Quality is described as dull and constant, and is localized to the mouth. Patient reports no radiation. Patient started experiencing this day(s) and it has been c onstant. No relieving factors improve symptom(s), No exacerbating factors reported . Patient notes fever/chills. Patient did receive the following treatments prior to arrival, none Related Data Home Medications Medication Instructions Recorded Confirmed escitalopram oxalate 20 mg tablet 20 mg PO DAILY 01/12/19 09/27/21 levonorgestrel 20 mcg/24 hours (7 1 device IY ONCE 04/18/19 06/10/21 yrs) 52 mg intrauterine device hydroxyzine HCl 10 mg tablet 20 mg PO HS tab 08/08/19 06/10/21 pantoprazole 20 mg tablet,delayed 20 mg PO DAILY PRN 04/09/21 09/27/21 release celecoxib 200 mg capsule 200 mg PO DAILY 06/10/21 09/27/21 prochlorperazine maleate 5 mg 5 - 10 mg PO Q8H PRN #30 tab 06/10/21 09/27/21 tablet fremanezumab-vfrm 225 mg/1.5 mL 225 mg SUBCUT QMONTH ml 08/28/21 09/27/21 subcutaneous auto-injector acetaminophen [Tylenol] 1,000 mg PO PER PKG DIR 09/27/21 09/27/21 penicillin V potassium 500 mg PO TID 9 Days #27 tab 09/27/21 Previous Rx's Medication Instructions Recorded prochlorperazine maleate 5 mg 5 - 10 mg PO Q8H PRN #30 tab 06/10/21 tablet penicillin V potassium 500 mg PO TID 9 Days #27 tab 09/27/21 Allergies Allergy/AdvReac Type Severity Reaction Status Date / Time Purple Makeup AdvReac Intermediate Eyes blew Uncoded 08/28/21 14:37 up General Stated Complaint: Sorethroat DESIRE: 4 Review of Systems Narrative: 6 systems reviewed and otherwise negative [facility] Active Problem List Pelvic floor dysfunction (Acute) Hematuria (Acute) Dysuria (Acute) Migraine headache without aura (Acute) Dysuria (Acute) Chest pain (Acute) Depression (Chronic) GERD (gastroesophageal reflux disease) (Chronic) Medical History Anxiety Family history of breast cancer (06/04/16) Mother Dx at 59 Hip pain, right Menorrhagia Personal history of cervical dysplasia (06/08/13) 2010 TERRY II Family History Mother Essential hypertension Breast cancer HER2 Grandmother Pancreatic cancer Maternal Diabetes Grandmother Ovarian cancer paternal Daughter Migraines Social History Smoking/Tobacco Use Status: Current every day Quit status: not considering quitting Smoking risk assessment performed?: Yes Alcohol Intake: current Alcohol Intake frequency: 0-2 drinks per day Alcohol ty pe: beer Drug use: Never Substance use type: does not use Current gender identity: female Seatbelt use: always Do you feel safe at home: Yes Do you feel safe in your relationship?: Yes Female Reproductive History Menstrual Duration of menses: 8-10 days control method: progestin IUCD and other History History 2 Para 2 Hx # Term Pregnancies Multiple births Hx # Pregnancies Ectopic pregnancies AB induced Hx Number of Living Children AB spontaneous Exam Narrative Exam Narrative: GEN: awake, alert, oriented 3. Pleasant, well groomed, interactive. HEAD: Normocephalic, atraumatic ENT: Mucous membranes moist, oropharynx erythematous, mild prominence of the right tonsil, no significant exudate, uvula midline, tympanic membranes clear bilaterally external ear exam unremarkable EYES: PERRL, EOMI NECK: Full ROM, no LEON, no menigismus CHEST/RESP: Nontender, clear to auscultation bilateral, no wheeze/rhonchi/rales CARDIOVASCULAR: RRR, no murmur, rub dean. 2+ Rad pulse bilateral EXT: Full ROM, no edema, no rash Neuro: Grossly normal neurologic exam, conversant, interactive. Psych: Speech fluent, thoughts congruent, affect normal Course Vital Signs Vital signs: Vital Signs Temperature 36.6 C 09/27/21 15:30 Pulse 85 09/27/21 15:30 Respiratory Rate 18 09/27/21 15:30 Blood Pressure 141/87 H 09/27/21 15:30 Pulse Oximetry 99 09/27/21 15:30 Temperature 36.6 C 09/27/21 15:30 Temperature Source Temporal Artery Scan 09/27/21 15:30 Pulse 85 09/27/21 15:30 Respiratory Rate 18 09/27/21 15:30 Blood Pressure 141/87 H 09/27/21 15:30 Blood Pressure Position Sitting 09/27/21 15:30 Pulse Oximetry 99 09/27/21 15:30 Oxygen Delivery Method Room Air 09/27/21 15:30 Oxygen Flow Rate 0 09/27/21 15:30 Pain Level 8 09/27/21 15:30 Lab/Test Results Lab/Test Results: 09/27/21 15:48 Pharynx Group A Streptococcus Culture - Pending POC Strep Test-MICKY(Rapid) Start: 09/27/21 15:30 Freq: .Rapid Strep Test Status: Active Protocol: Document 09/27/21 15:47 MM (Rec: 09/27/21 15:47 MM [id number]) Strep test-MICKY(Rapid)-POC POC-Strep test-MICKY (Rapid) Negative POC-Strep test-MICKY (Rapid) Negative
[2021-09-27] MEDS: Dexamethasone 4 MG TAB 8 MG PO (16:04)
[2021-09-27] MEDS: Penicillin V POTASSIUM 500 MG TAB, 4 TABS/BTL PO (16:05)
--- NOTE | 2021-09-28 16:14 | W.ED.FU ---
Follow Up Plan: Patient informed of strep culture. States she is improved and doing well.
== END 2021-09-27 16:11 | disposition home or self-care (01) ==
PROVIDERS: Emergency Provider Emergency Medicine; PCP Internal Medicine
DX: J02.0 Streptococcal pharyngitis (principal); R50.9 Fever, unspecified
CPT/HCPCS: 87880; 99283; 87081; J8540

== ENCOUNTER 2023-06-29 15:23 | Outpatient (REF) | payer MEDICAID, SELFPAY | END 2023-06-29 15:24 | disposition home or self-care (01) | LOC: LBN 15:23 | PROVIDERS: PCP Internal Medicine; Visit Provider Obstetrics & Gynecology | DX: R30.0 Dysuria (principal) | CPT/HCPCS: 87077; 87086; 87186 ==

== ENCOUNTER 2023-11-11 14:54 | Outpatient (REF) | payer BC, SELFPAY ==
[2023-11-13 13:51] LABS: Chlamydia Result Negative (Negative); GC Result Negative (Negative)
== END 2023-11-11 14:55 | disposition home or self-care (01) ==
LOC: LBN 14:54
PROVIDERS: PCP Internal Medicine; Visit Provider Obstetrics & Gynecology
DX: R30.0 Dysuria (principal)
CPT/HCPCS: 87491; 87591

== ENCOUNTER 2023-12-03 09:41 | Outpatient (REF) | payer BC, SELFPAY | END 2023-12-03 09:42 | disposition home or self-care (01) | LOC: LBN 09:41 | PROVIDERS: PCP Internal Medicine; Visit Provider Obstetrics & Gynecology | DX: R10.2 Pelvic and perineal pain (principal) | CPT/HCPCS: 87480; 87510; 87660 ==

== ENCOUNTER 2024-03-05 13:48 | Emergency (ER) | payer BC, SELFPAY ==
[2024-03-05 14:00] VITALS: BP 163/110; PULSE 87; RESP 16; TEMP 36.8; O2SAT 100
--- NOTE | 2024-03-05 14:00 | DI.RAD_ITS ---
Exam(s) XR ANKLE RT COMPLETE EXAM: XR ANKLE RT COMPLETE CLINICAL HISTORY: fell, lateral and medial pain, eval for fx. TECHNIQUE: 2D digital imaging was performed. Three views. COMPARISON: CR RIGHT ANKLE COMPLETE from 06/20/2014 FINDINGS: BONES: Small linear fragment of bone seen between the lateral malleolus and talus consistent with avu lsion fracture. No bony destructive lesion is seen. JOINTS: The ankle mortise is normally aligned. SOFT TISSUE: Swelling greater laterally. IMPRESSION: Avulsion fracture fragment seen between lateral malleolus and talus. DATA REPOSITORY: RADIATION DOSE DELIVERED:
[2024-03-05] MEDS: Ibuprofen 800 MG TAB PO (14:23)
[2024-03-05] MEDS: Acetaminophen 500 MG TAB 1000 MG PO (14:23)
--- NOTE | 2024-03-05 14:29 | ED.GENADUL_ITS ---
Discharge Plan Disposition Patient Disposition: Home Condition: Good Discharge Details Clinical Impression: Right ankle sprain, Sprain of anterior talofibular ligament of right ankle Primary Care Provider: Codi Loza ED Provider: Kraig Collins Home Meds and New Rx's Prescriptions: No Action escitalopram oxalate [Lexapro] 20 mg tablet 20 mg PO DAILY ibuprofen [Advil] 200 mg tablet 400 mg PO Q6H PRN hydroxyzine HCl 10 mg tablet 20 mg PO HS Qty: 60 2RF ibuprofen 800 mg tablet 800 mg PO Q8H Qty: 30 0RF Mirena 20 mcg/24 hours (5 yrs) 52 mg intrauterine device 1 device IY ONCE prochlorperazine maleate 5 mg tablet 5 - 10 mg PO Q8H PRN (Reason: Headache) Qty: 30 3RF Rx Instructions: Take 1-2 tablets every 8 hours as needed for headache. Ajovy Autoinjector 225 mg/1.5 mL auto-injector 675 mg subcut [id number] Qty: 4.5 3RF acetaminophen [Tylenol] 325 mg Tablet 1,000 mg PO PER PKG DIR Discharge Instructions Instructions: Ankle Sprain (ED) Additional Instructions: At this time we do not see any evidence of large fracture for your ankle. However there does appear to be disruption of your anterior talofibular ligament. As we discussed together I am concerned that you may have sprained the ligaments surrounding the ankle. Please take Tylenol and Motrin as needed for pain. Please apply the Voltaren/diclofenac gel 3-4 times per day. Please use the walking boot for the next 2 weeks, then as your symptoms improve you can transition to the lace up ankle brace. If your symptoms persist greater than a month you may need reevaluation and potential reimaging. If you notice any worsening of your symptoms, or any new symptoms such as vomit ing, diarrhea, fever, chills, shortness of breath, chest pain, numbness, weakness, or fainting , please return immediately to the emergency department for reevaluation. Please follow up with your primary care provider as soon as possible for reassessment and reevaluation. As always, it was a pleasure participating in your medical care today. Referrals: Codi Loza [Primary Care Provider] - HPI General Date/Time Provider Initiated Documentation: 03/05/24 13:51 . HPI Narrative: 48-year-old female presents today for evaluation of ankle pain. Patient states that last night she was walking and slipped on her foot. She is not sure which ankle or direction of foot went but she had notable pain. She has had pain with ambulation since then. No numbness or tingling. Pain is located in the medial and lateral ankle. She denies any pain anywhere else. No other complaints at this time. Related Data Home Medications Medication Instructions Recorded Confirmed escitalopram oxalate 20 mg tablet 20 mg PO DAILY 01/12/19 03/05/24 (Lexapro) levonorgestrel 21 mcg/24 hr (up to 1 device intrauterine ONCE 04/18/19 03/05/24 8 years) 52 mg intrauterine device (Mirena) acetaminophen 325 mg tablet 1,000 mg PO PER PKG DIR 09/27/21 03/05/24 (Tylenol) ibuprofen 200 mg tablet (Advil) 400 mg PO Q6H PRN 06/09/22 03/05/24 hydroxyzine HCl 10 mg tablet 20 mg (2 x 10 mg) PO HS headaches 02/10/23 03/05/24 #60 tabs ibuprofen 800 mg tablet 800 mg PO Q8H #30 tabs 11/11/23 03/05/24 fremanezumab-vfrm 225 mg/1.5 mL 675 mg (4.5 mL) subcut [id number] 01/06/24 03/05/24 subcutaneous auto-injector (Ajovy) #4.5 mL prochlorperazine maleate 5 mg 5 - 10 mg (1 - 2 x 5 mg) PO Q8H 01/06/24 03/05/24 tablet PRN Headache #30 tabs Previous Rx's Medication Instructions Recorded hydroxyzine HCl 10 mg tablet 20 mg (2 x 10 mg) PO HS headaches 02/10/23 #60 tabs ibuprofen 800 mg tablet 800 mg PO Q8H #30 tabs 11/11/23 fremanezumab-vfrm 225 mg/1.5 mL 675 mg (4.5 mL) subcut [id number] 01/06/24 subcutaneous auto-injector (Ajovy) #4.5 mL prochlorperazine maleate 5 mg 5 - 10 mg (1 - 2 x 5 mg) PO Q8H 01/06/24 tablet PRN Headache #30 tabs Allergies Allergy/AdvReac Type Severity Reaction Status Date / Time Purple Makeup AdvReac Intermediate Eyes blew Uncoded 03/05/24 13:59 up General Stated Complaint: Orthopedic DESIRE: 4 Review of Systems All systems reviewed & are unremarkable except as noted in HPI and below Exam Narrative Exam Narrative: 1.Const: Well-nourished, Well-developed, appearing stated age 2.Eyes: PERRL, no conjunctival injection, and symmetrical lids. 3.ENT: Atraumatic external nose and ears. Moist MM. Neck: Symmetric, trachea midline, No thyromegaly. 4.CVS: +S1/S2, No murmurs or gallops. Peripheral pulses 2+ and equal in all extremities. Brisk capillary refill in all extremities. 5.RESP: Unlabored respiratory effort. Clear to auscultation bilaterally. No whe ezes rales or rhonchi 6.GI: Soft, Nontender/Nondistended, No hepatosplenomegaly. No guarding or rebound. 7.MSK: Normocephalic, patient's ankle demonstrates swelling on the right on both the medial and lateral aspect, there is more swelling on the lateral aspect. Tenderness medial lateral and anterior. Pain with plantar flexion, inversion, and eversion. No pain with dorsiflexion. Dorsalis pedis and posterior tibial pulse plus. No tenderness over the mid or proximal tibia/fibula. 8.Skin: Warm, Dry. No rashes or lesions. 9.Neuro: production recorder II-XII grossly intact. Sensation grossly intact, no focal neurologic deficits. 10.Psych: (AAO) x3. Appropriate mood and affect Course Vital Signs Vital signs: Vital Signs Temperature 36.8 C 03/05/24 14:00 Pulse 87 03/05/24 14:00 Respiratory Rate 16 03/05/24 14:00 Blood Pressure 163/110 H 03/05/24 14:00 Pulse Oximetry 100 03/05/24 14:00 Temperature 36.8 C 03/05/24 14:00 Temperature Source Temporal Artery Scan 03/05/24 14:00 Pulse 87 03/05/24 14:00 Respiratory Rate 16 03/05/24 14:00 Respiratory Effort Normal, Non-Labored 03/05/24 14:02 Blood Pressure 163/110 H 03/05/24 14:00 Blood Pressure Position Sitting 03/05/24 14:00 Pulse Oximetry 100 03/05/24 14:00 Oxygen Delivery Method Room Air 03/05/24 14:00 Oxygen Flow Rate 0 03/05/24 14:00 Pain Level 10 03/05/24 14:00 Comment no meds, in splint 03/05/24 14:00 Medical Decision Making 48-year-old female presents today for evaluation of ankle pain. Patient states that last night she was walking and slipped on her foot. She is not sure which ankle or direction of foot went but she had notable pain. She has had pain with ambulation since then. No numbness or tingling. Pain is located in the medial and lateral ankle. She denies any pain anywhere else. No other complaints at this time. Exam demonstrates well-appearing female, swelling in the medial and lateral aspect of the ankle, pain in those areas as well. Pain with eversion. Inversion and plantarflexion. No significant noted with dorsiflexion. Will give NSAIDs, get an x-ray, monitor closely and reassess. Concern for fracture o r ligamentous injury. 3:30 PM X-ray shows evidence of an anterior talofibular ligament follow-up avulsion fracture. Patient remained stable.. Will give diclofenac gel, recommend Tylenol Motrin, and give a walking boot. Suspect sprain injury. No evidence of fracture. Discussed red flags for which to return. I have extensively reviewed the treatment plan and discharge instructions with the patient. I have addressed all patient concerns at this time. The patient was made aware of what symptoms to monitor for that would warrant a return to the emergency department. Discussed the plan with the patient, they demonstrate verbal understanding and agreement with our assessment and plan at this time. The documentation in this chart was dictated using [employer] dictation software. Please excuse any dictation errors. FINDINGS: Bones/joints: There is a 1 cm linear fragment between the talus and fibula. No dislocation. Soft tissues: There is lateral soft tissue swelling. IMPRESSION: 1. ATFL avulsion fracture. 2. Lateral soft tissue swelling. Thank you for allowing us to participate in the care of your patient. Dictated and Authenticated by: João Álvarez MD 03/05/2024 3:31 PM Eastern Time ([place] & [place]) Quality:SDOH Health Related Social Needs: No Data to Display PFSH All Active Problems (Updated 03/05/24 @ 15:41 by Kraig Collins DO) Sprain of anterior talofibular ligament of right ankle (Acute) Right ankle sprain (Acute) Dyspareunia in female (Acute) IUD surveillance (Acute) Right lower quadrant pain (Acute) Concussion (Acute) TMJ (dislocation of temporomandibular joint) (Acute) Pharyngitis (Acute) Pelvic floor dysfunction (Acute) Hematuria (Acute) Dysuria (Acute) Dysuria (Acute) 12/09/2020. Urinary frequency burning with voiding. Rx with Bactrim x3 days Chest pain (Acute) Migraine headache without aura (Acute) Depression (Chronic) GERD (gastroesophageal reflux disease) (Chronic) Not formally diagnosed by any endoscopy. Empirically treated with omeprazole. Medical History Anxiety Hip pain, right Menorrhagia Family history of breast cancer (06/04/16) Mother Dx at 59 Personal history of cervical dysplasia (06/08/13) 2010 TERRY II Family History Mother Essential hypertension Breast cancer HER2 Grandmother Pancreatic cancer Maternal Diabetes Grandmother Ovarian cancer paternal Daughter Migraines Social History Smoking/Tobacco Use Status: Current every day Quit status: not considering quitting Smoking risk assessment performed?: Yes Alcohol Intake: current Alcohol Intake frequency: 0-2 drinks per day Alcohol type: beer Drug use: Never Substance use type: does not use Housing: house Current gender identity: female Seatbelt use: always Do you feel safe at home: Yes Do you feel safe in your relationship?: Yes Female Reproductive History Menstrual Duration of menses: 8-10 days control method: progestin IUCD and other History History 2 Para 2 Hx # Term Pregnancies Multiple births Hx # Pregnancies Ectopic pregnancies AB induced Hx Number of Living Children AB spontaneous
[2024-03-05] MEDS: Diclofenac 1% Gel 100 GM TUBE TP (15:24)
[2024-03-05 15:30] VITALS: BP 142/80; PULSE 70; RESP 16; TEMP 36.8; O2SAT 100
--- NOTE | 2024-03-05 15:31 | DI.VRAD_ITS ---
PROCEDURE INFORMATION: Exam: XR Right Ankle Exam date and time: 03/05/2024 2:27 PM Age: 48 years old Clinical indication: Other: Fell, lateral medial pain eval for FX TECHNIQUE: Imaging protocol: Radiologic exam of the right ankle. Views: 3 or more views. COMPARISON: No relevant prior studies available. FINDINGS: Bones/joints: There is a 1 cm linear fragment between the talus and fibula. No dislocation. Soft tissues: There is lateral soft tissue swelling. IMPRESSION: 1. ATFL avulsion fracture. 2. Lateral soft tissue swelling. Dictated and Authenticated by: João Álvarez MD. Ordering:VEDA Cornell MD
== END 2024-03-05 15:30 | disposition home or self-care (01) ==
PROVIDERS: Emergency Provider Student in an Organized Health Care Education/Training Program; PCP Nurse Practitioner Family
DX: S93.491A Sprain of other ligament of right ankle, initial encounter (principal); F17.200 Nicotine dependence, unspecified, uncomplicated; W10.8XXA Fall (on) (from) other stairs and steps, initial encounter; Y93.01 Activity, walking, marching and hiking; Y92.018 Other place in single-family (private) house as the place of occurrence of the external cause
CPT/HCPCS: 99283; 73610

== ENCOUNTER → 2024-05-03 01:45 | Outpatient (CLI) | payer BC, SELFPAY ==
--- NOTE | 2024-05-03 | DI.MAMMO_ITS ---
Exam(s) MAMMO SCREENING EXAM: MAMMO SCREENING CLINICAL HISTORY: SCREENING, Z12.31. TECHNIQUE: Bilateral full field digital CC and MLO mammographic images were obtained with 3D tomosyn thesis and utilizing computer aided detection (CAD). COMPARISON: Prior baseline mammogram of 2018 was reviewed. FINDINGS: There are no CAD designations. No new findings in the right breast. In the left breast there is an asymmetric density-possible nodule located 6 cm medial of center on th e CC view. This measures 9 by 7 mm. There are no malignant-appearing microcalcification groups is region or elsewhere in either breast. Of no new architectural distortion or skin thickening-traction. IMPRESSION: 1. No radiographic evidence of malignancy in the right breast. 2. Asymmetric nodular density in the medial aspect of the left breast. Spot compression CC view and ultrasound recommended. BI-RADS Category 0 - Assessment Incomplete: Need additional imaging evaluation Breast Density - Category B - Scattered areas of fibroglandular density Breast density Category C or D implies that the patient has dense breast tissue. Dense breast tissue can make it harder to find cancer on a mammogram. Dense breast tissue is also associated with an incr eased risk of breast cancer. This information about the result of the mammogram report was provided to the patient to raise their awareness. Use this report when you speak with the patient about their risks for breast cancer, which includes their family history. At that time, you may recommend additional screening tests (Ultrasoun d or MRI) as these tests may add significant information. A negative radiographic report should not delay biopsy if a dominant or clinically suspicious mass is present. Up to ten percent of cancers are not identified on mammography. A negative report may reinforce clinical impression. Adenosis and dense breasts may obscure an underlying neoplasm. False positive reports average 6 to 10%. Patient will receive a letter notifying them of these results.
== END ==
PROVIDERS: PCP Nurse Practitioner Family; Visit Provider Nurse Practitioner Family
DX: Z12.31 Encounter for screening mammogram for malignant neoplasm of breast (principal); R92.8 Other abnormal and inconclusive findings on diagnostic imaging of breast
CPT/HCPCS: 77063; 77067

== ENCOUNTER → 2024-05-08 02:45 | Outpatient (CLI) | payer BC, SELFPAY ==
--- NOTE | 2024-05-08 | DI.MAMMO_ITS ---
Exam(s) MG MAMMO SCREEN CALL BACK UNI US BREAST LT LIMITED EXAM: MG MAMMO SCREEN CALL BACK UNI CLINICAL HISTORY: F/U ABNL MAMMO, LT BREAST ASYMMETRIC NODULAR DENSITY. TECHNIQUE: Craniocaudal and mediolateral oblique spot compression digital Mammography views of the b reast with Tomosynthesis and breast ultrasound. COMPARISON: MG Screening Bilat Mammo from 11/16/2017 MG MG MAMMO SCREENING from 05/03/2024 US US BREAST LT LIMITED from 05/08/2024 FINDINGS: Mammography/Tomosynthesis: Masses: Circumscribed ovoid mass in the lower inner quadrant present on the previous exam. Architectural Distortion: None seen. Microcalcifictions: No suspicious pleomorphic-type are seen. Skin Thickening/Nipple Retraction: None. Left breast US: Echotexture: Normal appearance of the glandular tissue. Shadowing: No suspicious foci. Cyst: None. Solid lesions: Smoothly marginated hypoechoic nodule measuring 7 x 4 x 8 millimeters, consistent with a fibroadenoma Ductal dilation: None. IMPRESSION: 1. No evidence of malignancy is noted. 2. Unless there is more urgent need, follow-up screening mammography is recommended, as per [place] [employer] guidelines. 3. The findings were discussed with the patient on the date of the examination. BI-RADS Category 2 - Benign Findings Breast Density - Category B - Scattered areas of fibroglandular density A mammogram that demonstrates density of C or D indicates the patient's breast tissue is dense. Dense breast tissue is very common and is not abnormal, but dense breast tissue can make it harder to find cancer on a mammogram. Also, dense breast tissue may increase their breast cancer risk. This informa tion about the result of the mammogram report was provided to the patient to raise their awareness. U se this report when you speak with the patient about their risks for breast cancer, which includes th eir family history. At that time, you may recommend for more screening tests (Ultrasound or MRI) as t hey might be useful based on their risk. A negative radiographic report should not delay biopsy if a dominant or clinically suspicious mass is present. Up to ten percent of cancers are not identified on mammography. A negative report may reinforce clinical impression. Adenosis and dense breasts may obscure an underlying neoplasm. False positive reports average 6 to 10%. Patient will receive a letter notifying them of these results.
== END ==
PROVIDERS: PCP Nurse Practitioner Family; Visit Provider Nurse Practitioner Family
DX: Z12.31 Encounter for screening mammogram for malignant neoplasm of breast (principal); R92.8 Other abnormal and inconclusive findings on diagnostic imaging of breast; N63.24 Unspecified lump in the left breast, lower inner quadrant; D24.2 Benign neoplasm of left breast
CPT/HCPCS: 76642; 77063; 77067

== ENCOUNTER 2024-05-24 10:48 | Outpatient (REF) | payer BC, SELFPAY ==
[2024-05-24 15:27] LABS: ALT 30 U/L (14-59); AST 20 U/L (15-37); Albumin 3.8 g/dL (3.4-5.0); Alkaline Phosphatase 74 U/L (46-116); Anion Gap 8.8 mmol/L (3-11); BUN 8 mg/dL (7-18); Bilirubin, Total 0.69 mg/dL (0.2-1.0); CO2 26.2 mmol/L (21.0-32.0); CREATININE 0.8 mg/dL (0.55-1.02); Calcium 9.4 mg/dL (8.5-10.1); Calculated LDL 109 mg/dL (<100); Chloride 105 mmol/L (98-107); Cholesterol 221 mg/dL (<200); Estimated GFR 91.97 (mL/min/1.73m2); Glucose 97 mg/dL (74-106); HDL Cholesterol 97 mg/dL (40-60); Potassium 5.2 mmol/L (3.5-5.1); Sodium 140 mmol/L (136-145); Total Protein 7.6 g/dL (6.4-8.2); Triglyceride 79 mg/dL (<150)
== END 2024-05-24 10:49 | disposition home or self-care (01) ==
LOC: NCHCN 10:48
PROVIDERS: PCP Nurse Practitioner Family; Visit Provider Nurse Practitioner Family
DX: Z00.00 Encounter for general adult medical examination without abnormal findings (principal); Z13.220 Encounter for screening for lipoid disorders; Z13.228 Encounter for screening for other metabolic disorders
CPT/HCPCS: 80053; 80061

== ENCOUNTER 2024-08-10 17:34 | Outpatient (REF) | payer BC, SELFPAY | END 2024-08-10 17:35 | disposition home or self-care (01) | LOC: NCHCN 17:34 | PROVIDERS: PCP Nurse Practitioner Family; Visit Provider Nurse Practitioner Family | DX: N39.0 Urinary tract infection, site not specified (principal); B96.29 Other Escherichia coli [E. coli] as the cause of diseases classified elsewhere; R82.89 Other abnormal findings on cytological and histological examination of urine | CPT/HCPCS: 87077; 87086; 87186 ==

== ENCOUNTER 2025-04-06 14:14 | Emergency (ER) | payer BC, SELFPAY ==
[2025-04-06 14:30] VITALS: BP 136/84; PULSE 69; RESP 16; TEMP 36.7; O2SAT 95
--- NOTE | 2025-04-06 14:45 | DI.RAD_ITS ---
Exam(s) XR LUMBAR SPINE AP, LAT EXAM: XR LUMBAR SPINE AP, LAT CLINICAL HISTORY: back pain. TECHNIQUE: 2D digital imaging was performed of the lumbar spine. Three images were obtained. AP, l ateral and L5-S1 spot views were obtained. COMPARISON: CR XR LUMBAR SPINE COMPLETE from 02/28/2021 FINDINGS: BONES: No fracture or destructive lesion. Small endplate osteophytes are seen at L3-L4. No facet hype rtrophy identified. DISKS: There is mild disc space narrowing at T11-T12. ALIGNMENT: Lumbar spinal alignment is within normal limits. No spondylolysis or spondylolisthesis. SOFT TISSUE: Normal. IMPRESSION: Mild degenerative changes seen in the lumbar spine. DATA REPOSITORY: RADIATION DOSE DELIVERED:
--- NOTE | 2025-04-06 14:45 | DI.RAD_ITS ---
Exam(s) XR SACROILIAC JOINTS EXAM: XR SACROILIAC JOINTS CLINICAL HISTORY: low back pain. TECHNIQUE: 2D digital imaging was performed. Three images were obtained. COMPARISON: CR XR SACRUM COCCYX from 02/28/2021 FINDINGS: Bones: No fracture is present. No bony destructive lesion is seen. Alignment is satisfactory. SI Joint:No fusion, erosions or sclerosis is seen. Soft Tissue: There is an IUD in place. IMPRESSION: Normal radiographs of the SI Joints. DATA REPOSITORY: RADIATION DOSE DELIVERED:
[2025-04-06] MEDS: Methocarbamol 500 MG TAB 1000 MG PO (15:37)
[2025-04-06] MEDS: Gabapentin 300 MG CAP 600 MG PO (15:37)
[2025-04-06] MEDS: Lidocaine 5% Patch 1 PATCH TP (15:37)
--- NOTE | 2025-04-06 17:09 | W.ED.GENAD ---
Discharge Plan Disposition Patient Disposition: Home Discharge Details Clinical Impression: Chronic back pain Primary Care Provider: Codi Loza ED Provider: eLx Bedoya Home Meds and New Rx's Prescriptions: New lidocaine [Lidoderm] 5 % adhesive patch,medicated 1 patch topical DAILY Qty: 15 0RF Rx Instructions: leave on most painful area for up to 12 hrs methocarbamol 500 mg tablet 500 mg PO TID Qty: 30 0RF No Action escitalopram oxalate [Lexapro] 20 mg tablet 20 mg PO DAILY hydroxyzine HCl 10 mg tablet 20 mg PO HS Qty: 60 2RF ibuprofen 800 mg tablet 800 mg PO Q8H Qty: 30 0RF Aimovig Autoinjector 140 mg/mL auto-injector 140 mg subcut QMONTH Qty: 1 11RF prochlorperazine maleate 5 mg tablet 5 - 10 mg PO Q8H PRN (Reason: Headache) Qty: 30 3RF Rx Instructions: Take 1-2 tablets every 8 hours as needed for headache. Mirena 20 mcg/24 hours (5 yrs) 52 mg intrauterine device 1 device IY ONCE acetaminophen [Tylenol] 325 mg Tablet 1,000 mg PO PER PKG DIR gabapentin 300 mg capsule 300 mg PO TID Patient Comments: TAKE ONE CAPSULE BY MOUTH THREE TIMES A DAY celecoxib 200 mg capsule 200 mg PO BID Patient Comments: TAKE ONE CAPSULE BY MOUTH TWICE A DAY NEEDED FOR PAIN Discharge Instructions Additional Instructions: xrays today do not reveal an acute abnormality and your neurologic exam is normal please follow up with your PCP for re-evaluation of symptoms, ongoing pain control needs and referral back to [facility] you can increase your gabapentin to 600mg TID as long as this doesn't make you too sleepy use new prescriptions as directed you were provided a small amount of opiate pain medication to take for this severe pain. use 1/2 tab every 8 hours for severe pain. HPI General Date/Time Provider Initiated Documentation: 04/06/25 14:16. Limitations to Documentation: no limitations. Information obtained by: patient. HPI Narrative: 49-year-old female without significant past medical history presents for evaluation of 3 weeks of lower back pain. She has had this pain previously. She reports that she had injections in her lower back few years ago with complete resolution of pain. Symptoms returned about 3 weeks ago while sitting at a desk. She denies any trauma, fevers or chills. She denies any lower extremity weakness numbness or incontinence. She denies IV drug use or history of malignancy. The patient reports that the pain is worse with sitting, does improve with some standing and gentle movements. She has been trying to do yoga and has visited her primary care provider who gave her some medications to try. She has been taking gabapentin as well as Flexeril and celecoxib. She reports no improvement in her symptoms with this. Related Data Home Medications ?Medication ?Instructions ?Recorded ?Confirmed escitalopram oxalate 20 mg tablet 20 mg PO DAILY 01/12/19 04/06/25 (Lexapro) levonorgestrel 21 mcg/24 hr (up to 1 device intrauterine ONCE 04/18/19 04/06/25 8 years) 52 mg intrauterine device (Mirena) acetaminophen 325 mg tablet 1,000 mg PO PER PKG DIR 09/27/21 04/06/25 (Tylenol) hydroxyzine HCl 10 mg tablet 20 mg (2 x 10 mg) PO HS headaches 02/10/23 04/06/25 #60 tabs ibuprofen 800 mg tablet 800 mg PO Q8H #30 tabs 11/11/23 04/06/25 erenumab-aooe 140 mg/mL 140 mg subcut QMONTH #1 mL 10/12/24 04/06/25 subcutaneous auto-injector (Aimovig Autoinjector) prochlorperazine maleate 5 mg 5 - 10 mg (1 - 2 x 5 mg) PO Q8H 10/12/24 04/06/25 tablet PRN Headache #30 tabs celecoxib 200 mg capsule 200 mg PO BID 04/06/25 04/06/25 gabapentin 300 mg capsule 300 mg PO TID 04/06/25 04/06/25 lidocaine 5 % topical patch 1 patch topical DAILY #15 ea 04/06/25 (Lidoderm) methocarbamol 500 mg tablet 500 mg PO TID #30 tabs 04/06/25 Previous Rx's ?Medication ?Instructions ?Recorded hydroxyzine HCl 10 mg tablet 20 mg (2 x 10 mg) PO HS headaches 02/10/23 #60 tabs ibuprofen 800 mg tablet 800 mg PO Q8H #30 tabs 11/11/23 erenumab-aooe 140 mg/mL 140 mg subcut QMONTH #1 mL 10/12/24 subcutaneous auto-injector (Aimovig Autoinjector) prochlorperazine maleate 5 mg 5 - 10 mg (1 - 2 x 5 mg) PO Q8H 10/12/24 tablet PRN Headache #30 tabs lidocaine 5 % topical patch 1 patch topical DAILY #15 ea 04/06/25 (Lidoderm) methocarbamol 500 mg tablet 500 mg PO TID #30 tabs 04/06/25 Allergies Allergy/AdvReac Type Severity Reaction Status Date / Time Purple Makeup AdvReac Intermediate Eyes blew Uncoded 04/06/25 14:35 up General Stated Complaint: Nk/Back Pain DESIRE: 3 Exam Narrative Exam Narrative: Review of Systems: All systems reviewed & are unremarkable except as noted in HPI and below Well-developed, no acute distress afebrile NCAT RRR Unlabored respiratory effort Nondistended abdomen No midline back tenderness step-off or deformity, there is right lower pain over the sacroiliac joint No tenderness in the right hip no focal neurologic deficits, sensation and strength normal bilaterally Appropriate mood and affect Course Vital Signs Vital signs: Vital Signs Temperature 36.7 C 04/06/25 14:30 Pulse 69 04/06/25 14:30 Respiratory Rate 16 04/06/25 14:30 Blood Pressure 136/84 04/06/25 14:30 Pulse Oximetry 95 04/06/25 14:30 Temperature 36.7 C 04/06/25 14:30 Temperature Source Oral 04/06/25 14:30 Pulse 69 04/06/25 14:30 Respiratory Rate 16 04/06/25 14:30 Blood Pressure 136/84 04/06/25 14:30 Blood Pressure Position Sitting 04/06/25 14:30 Pulse Oximetry 95 04/06/25 14:30 Oxygen Delivery Method Room Air 04/06/25 14:30 Oxygen Flow Rate 0 04/06/25 14:30 Pain Level 9 04/06/25 14:30 Medical Decision Making Emergent evaluation of acute on chronic right lower back pain. Patient has no signs or symptoms consistent with sciatica. She has no neurologic deficit. Low suspicion for acute cord compression or cauda equina at this time, given presentation and symptoms, including epidural abscess or hematoma. Patient has no history of malignancy, active or distant history. Patient has no unexplained weight loss. No recent fevers, rigors, malaise, or recent infection. No history of IVDU or skin-popping. Patient does not have any history concerning for saddle anesthesia/perianal sensory loss or complaining of decreased rectal tone. Patient does not have urinary retention or inability to control urine from overflow. Patient has no tenderness overlying spinous process. Patient has no focal weakness on examination. Given exam and history, low suspicion for cord compression, cauda equina, epidural abscess/hematoma. Distally neurovascuarly intact. An x-ray was obtained which did not reveal any significant abnormalities or decreased disc height. discussed pain control, physical therapy and follow up with PMD. Cautious return precautions discussed w/ full understanding Quality:SDOH Health Related Social Needs: No Data to Display PFSH All Active Problems (Updated 04/06/25 @ 15:57 by Lex Bedoya MD) Chronic back pain (Acute) Dyspareunia in female (Acute) IUD surveillance (Acute) Right lower quadrant pain (Acute) Concussion (Acute) TMJ (dislocation of temporomandibular joint) (Acute) Pharyngitis (Acute) Pelvic floor dysfunction (Acute) Hematuria (Acute) Dysuria (Acute) Dysuria (Acute) 12/09/2020. Urinary frequency burning with voiding. Rx with Bactrim x3 days Chest pain (Acute) Migraine headache without aura (Acute) Depression (Chronic) GERD (gastroesophageal reflux disease) (Chronic) Not formally diagnosed by any endoscopy. Empirically treated with omeprazole. Medical History Anxiety Hip pain, right Menorrhagia Family history of breast cancer (06/04/16) Mother Dx at 59 Personal history of cervical dysplasia (06/08/13) 2011 TERRY II Family History Mother Essential hypertension Breast cancer HER2 Grandmother Pancreatic cancer Maternal Diabetes Grandmother Ovarian cancer paternal Daughter Migraines Social History Smoking/Tobacco Use Status: Current every day Quit status: not considering quitting Smoking risk assessment performed?: Yes Alcohol Intake: current Alcohol Intake frequency: 0-2 drinks per day Alcohol type: beer Drug use: Never Substance use type: does not use Housing: house Current gender identity: female Seatbelt use: always Do you feel safe at home: Yes Do you feel safe in your relationship?: Yes Female Reproductive History Menstrual Duration of menses: 8-10 days control method: progestin IUCD and other History History 2 Para 2 Hx # Term Pregnancies Multiple births Hx # Pregnancies Ectopic pregnancies AB induced Hx Number of Living Children AB spontaneous
== END 2025-04-06 17:09 | disposition home or self-care (01) ==
PROVIDERS: Emergency Provider Emergency Medicine; PCP Nurse Practitioner Family
DX: M54.50 Low back pain, unspecified (principal); G89.29 Other chronic pain
CPT/HCPCS: 99283; 72100; 72202

== ENCOUNTER 2025-05-03 14:35 | Outpatient (REF) | payer BC, SELFPAY ==
[2025-05-03 20:44] LABS: Abs Immature Grans 0.05 10^3/uL (0.0-0.06); HCT 37.7 % (36.0-46.0); HGB 12.4 g/dL (11.2-15.7); Immature Grans % 0.3 %; MCH 30.7 pg (27.0-33.0); MCHC 32.9 % (32.0-36.0); MCV 93 fL (80-95); MPV 9.7 fL (8.0-11.0); Platelet Count 400 10^3/uL (130-400); RBC 4.04 10^6/uL (3.93-5.22); RDW 12.5 % (11.7-14.6); RDW-SD 43.0 fL; WBC 15.08 10^3/uL (4.4-10.8)
[2025-05-03 20:46] LABS: ESR 24 mm/hr (0-20)
[2025-05-03 21:01] LABS: ALT 26 U/L (14-59); AST 18 U/L (15-37); Albumin 4.0 g/dL (3.4-5.0); Alkaline Phosphatase 84 U/L (46-116); Anion Gap 11.2 mmol/L (3-11); BUN 11 mg/dL (7-18); Bilirubin, Total 0.4 mg/dL (0.2-1.0); CO2 25.8 mmol/L (21.0-32.0); Calcium 9.3 mg/dL (8.5-10.1); Chloride 101 mmol/L (98-107); Estimated GFR 116.34 (mL/min/1.73m2); Glucose 87 mg/dL (74-106); Potassium 4.2 mmol/L (3.5-5.1); Sodium 138 mmol/L (136-145); Total Protein 7.7 g/dL (6.4-8.2)
[2025-05-04 15:48] LABS: CRP, High Sensitivity 12.48 mg/L (See Note)
== END 2025-05-03 14:36 | disposition home or self-care (01) ==
LOC: NCHCN 14:35
PROVIDERS: PCP Nurse Practitioner Family; Visit Provider Nurse Practitioner Family
DX: Z00.00 Encounter for general adult medical examination without abnormal findings (principal); M25.50 Pain in unspecified joint
CPT/HCPCS: 80053; 85652; 86141; 85025; 86038; 86431

== ENCOUNTER 2025-05-23 01:59 | Outpatient (CLI) | payer BC, SELFPAY ==
--- NOTE | 2025-05-23 08:12 | DI.RAD_ITS ---
Exam(s) XR HAND RT COMPLETE EXAM: XR HAND RT COMPLETE CLINICAL HISTORY: SWELLING OF FINGER JOINT,EFFUSION,M25.441. TECHNIQUE: 2D digital imaging was performed of the right hand. Three images were obtained. AP, lateral and oblique views were obtained. COMPARISON: No exams were available for comparison FINDINGS: BONES: No acute fracture is present. No bony destructive lesion is seen. There is a chronic deformity of the distal ulna. JOINTS: No dislocation present. The joint spaces are well maintained. No erosions are seen. No soft tissue calcifications are present. SOFT TISSUE: Normal. IMPRESSION: No acute abnormality. DATA REPOSITORY: RADIATION DOSE DELIVERED:
== END 2025-05-23 02:19 ==
LOC: DI 01:59
PROVIDERS: PCP Nurse Practitioner Family; Visit Provider Nurse Practitioner Family
DX: M25.441 Effusion, right hand (principal)
CPT/HCPCS: 73130

== ENCOUNTER 2025-06-20 08:51 | Outpatient (REF) | payer BC, SELFPAY ==
[2025-06-20 15:16] LABS: Abs Immature Grans 0.02 10^3/uL (0.0-0.06); HCT 38.3 % (36.0-46.0); HGB 12.6 g/dL (11.2-15.7); Immature Grans % 0.3 %; MCH 30.0 pg (27.0-33.0); MCHC 32.9 % (32.0-36.0); MCV 91 fL (80-95); MPV 9.8 fL (8.0-11.0); Platelet Count 327 10^3/uL (130-400); RBC 4.20 10^6/uL (3.93-5.22); RDW 12.0 % (11.7-14.6); RDW-SD 40.0 fL; WBC 7.57 10^3/uL (4.4-10.8)
== END 2025-06-20 08:52 | disposition home or self-care (01) ==
LOC: NCHCN 08:51
PROVIDERS: PCP Nurse Practitioner Family; Visit Provider Nurse Practitioner Family
DX: D72.829 Elevated white blood cell count, unspecified (principal)
CPT/HCPCS: 85025

== ENCOUNTER 2025-08-08 12:27 | Emergency (ER) | payer BC, SELFPAY ==
[2025-08-08 12:30] VITALS: BP 128/82; PULSE 85; RESP 16; TEMP 36.2; O2SAT 96
--- NOTE | 2025-08-08 12:48 | W.ED.GENAD ---
Discharge Plan Disposition Patient Disposition: Home Condition: Stable Discharge Details Clinical Impression: Diverticulitis Primary Care Provider: Codi Loza ED Provider: Catherine Sweeney Home Meds and New Rx's Prescriptions: New ciprofloxacin HCl [Cipro] 500 mg tablet 500 mg PO BID 10 Days Qty: 20 0RF Rx Instructions: Take 1 tablet by mouth twice daily x 10 days metronidazole 500 mg tablet 500 mg PO BID 10 Days Qty: 20 0RF Rx Instructions: Take one tablet by mouth twice daily x 10 days Continued escitalopram oxalate [Lexapro] 20 mg tablet 20 mg PO DAILY hydroxyzine HCl 10 mg tablet 20 mg PO HS Qty: 60 2RF ibuprofen 800 mg tablet 800 mg PO Q8H Qty: 30 0RF prochlorperazine maleate 5 mg tablet 5 - 10 mg PO Q8H PRN (Reason: Headache) Qty: 30 3RF Rx Instructions: Take 1-2 tablets every 8 hours as needed for headache. Mirena 20 mcg/24 hours (5 yrs) 52 mg intrauterine device 1 device IY ONCE acetaminophen [Tylenol] 325 mg Tablet 1,000 mg PO PER PKG DIR celecoxib 200 mg capsule 200 mg PO BID Patient Comments: TAKE ONE CAPSULE BY MOUTH TWICE A DAY NEEDED FOR PAIN lidocaine [Lidoderm] 5 % adhesive patch,medicated 1 patch topical DAILY Qty: 15 0RF Rx Instructions: leave on most painful area for up to 12 hrs Discharge Instructions Instructions: Clear Liquid Diet, Diverticulitis Additional Instructions: The CT shows that you have some diverticulitis. Please take the antibiotics as prescribed twice daily x 10 days with yogurt or a probiotic. Clear liquids x 2-3 days then a bland diet thereafter. Stay away from anything with seeds or berries in it. Please return to the ER for any worsening abdominal pain fever vomiting unable to keep down the medications or feeling sicker at any time. Please take Tylenol or Ibuprofen with food every 4-6 hours as needed for pain and swelling. Follow up with primary care provider in 3-5 days. Return to ED sooner if any worsening or concerns. Referrals: Codi Loza [Primary Care Provider, Medicine] - 5 days Referral Note: ER follow up, call for an appointment Clinical Impression: Diverticulitis HPI General Mode of arrival: ambulatory. Date/Time Provider Initiated Documentation: 08/08/25 12:35. Limitations to Documentation: no limitations. Information obtained by: patient, RN notes reviewed and old records reviewed. HPI Narrative: 49-year-old female presents to the ER with a chief complaint of right lower quadrant abdominal pain which radiates into her right flank which began yesterday. Associated with nausea no vomiting. Denies any dysuria or problems urinating. Does not have any history of abdominal surgeries. Related Data Home Medications ?Medication ?Instructions ?Recorded ?Confirmed escitalopram oxalate 20 mg tablet 20 mg PO DAILY 01/12/19 08/08/25 (Lexapro) levonorgestrel (Mirena) 1 device intrauterine ONCE 04/18/19 08/08/25 acetaminophen 325 mg tablet 1,000 mg PO PER PKG DIR 09/27/21 08/08/25 (Tylenol) hydroxyzine HCl 10 mg tablet 20 mg (2 x 10 mg) PO HS headaches 02/10/23 08/08/25 #60 tabs ibuprofen 800 mg tablet 800 mg PO Q8H #30 tabs 11/11/23 08/08/25 prochlorperazine maleate 5 mg 5 - 10 mg (1 - 2 x 5 mg) PO Q8H 10/12/24 08/08/25 tablet PRN Headache #30 tabs celecoxib 200 mg capsule 200 mg PO BID 04/06/25 08/08/25 lidocaine 5 % topical patch 1 patch topical DAILY #15 ea 04/06/25 08/08/25 (Lidoderm) ciprofloxacin HCl 500 mg tablet 500 mg PO BID Diverticulitis 10 08/08/25 (Cipro) days #20 tabs metronidazole 500 mg tablet 500 mg PO BID Diverticulitis 10 08/08/25 days #20 tabs Previous Rx's ?Medication ?Instructions ?Recorded hydroxyzine HCl 10 mg tablet 20 mg (2 x 10 mg) PO HS headaches 02/10/23 #60 tabs ibuprofen 800 mg tablet 800 mg PO Q8H #30 tabs 11/11/23 prochlorperazine maleate 5 mg 5 - 10 mg (1 - 2 x 5 mg) PO Q8H 10/12/24 tablet PRN Headache #30 tabs lidocaine 5 % topical patch 1 patch topical DAILY #15 ea 04/06/25 (Lidoderm) ciprofloxacin HCl 500 mg tablet 500 mg PO BID Diverticulitis 10 08/08/25 (Cipro) days #20 tabs metronidazole 500 mg tablet 500 mg PO BID Diverticulitis 10 08/08/25 days #20 tabs Allergies Allergy/AdvReac Type Severity Reaction Status Date / Time Purple Makeup AdvReac Intermediate Eyes blew Uncoded 08/08/25 12:30 up General Stated Complaint: Abd Prob DESIRE: 3 Review of Systems Gastrointestinal Gastrointestinal: Reports as per HPI, Reports abdominal pain, Denies diarrhea, Reports nausea and Denies vomiting Exam Narrative Exam Narrative: Constitutional: Alert and oriented x3. Appears stated age. Normal body habitus. Head: Normocephalic, no trauma. Eyes: Pupils PERRL, Red reflex noted, EOM's intact. Eyelids symmetrical without lesions, discharge, or swelling. ENT: Bilateral TM's WNL, External ear normal to inspection, no mastoid TTP, swelling, or erythema, Nasal turbinates WNL, no nasal discharge. Normal dentition, Posterior pharynx WNL, no exudate. Chest: RRR, Normal S1, S2, distal pulses intact. Resp: Lungs clear to auscultation bilaterally, no wheezes, rales, or rhonchi. Abdomen: Soft, non-distended, Normoactive bowel sounds all 4 quads. Musculoskeletal: Normal gait, Moves all 4 extremities without difficulty. Skin: No suspicious rashes or lesions. Capillary refill less than 2 sec. Neurologic: Cranial nerves II-XII intact. Alert and oriented x 3. Motor: No deficits noted. Sensory: Intact bilaterally all 4 extremities. Hematologic/Lymphatic: No ecchymosis, no lymphadenopathy. Course Vital Signs Vital signs: Vital Signs Temperature 36.2 C L 08/08/25 12:30 Pulse 85 08/08/25 12:30 Respiratory Rate 16 08/08/25 12:30 Blood Pressure 128/82 08/08/25 12:30 Pulse Oximetry 96 08/08/25 12:30 Temperature 36.2 C L 08/08/25 12:30 Temperature Source Temporal Artery Scan 08/08/25 12:30 Pulse 85 08/08/25 12:30 Respiratory Rate 16 08/08/25 12:30 Blood Pressure 128/82 08/08/25 12:30 Pulse Oximetry 96 08/08/25 12:30 Oxygen Delivery Method Room Air 08/08/25 12:30 Oxygen Flow Rate 0 08/08/25 12:30 Medical Decision Making 49-year-old female presents to the ER with a chief complaint of right lower quadrant abdominal pain which radiates into her right flank which began yesterday. Associated with nausea no vomiting. Denies any dysuria or problems urinating. Does not have any history of abdominal surgeries. CT shows severe acute diverticulitis of the sigmoid colon with surrounding stranding. Patient does have a elevated white blood cell count at 16.05, CMP largely within normal limits. Moderate leukocytes 10-20 WBCs. With squamous contamination. Will place patient on Cipro and Flagyl and discussed diet and strict return instructions if needed. Discussed CT results with patient who verbalized understanding. Discussed clear liquid diet and follow-up care discussed tricked return instructions to return for any worsening abdominal pain, abdominal bloating nausea vomiting unable to keep the medications down or feeling sicker at any time. She verbalized understanding. Patient was given the first dose of the antibiotics here. This text was generated using [employer] dictation system, please disregard any oddities of phrase or misspellings. Imaging Data Radiologic Study: Imaging: CT Scan Radiologist's impression: IMPRESSION: 1. Main acute findings here in the sigmoid colon where there is prominent edema along an 8 cm length of bowel at this level, this in region of sigmoid diverticuli. Most probable diagnosis is severe acute diverticulitis. There is abundant surrounding fat streaking and there is some free fluid in the dependent aspect of the pelvis. This patient is at high risk for developing an abscess. 2. Adjacent urinary bladder appears unremarkable. 3. There is an IUD in satisfactory position in the uterus. 4. No clinically significant ovarian findings. Report called by myself to ER 08/08/2025 at 2:21 p.m. Lab Data Lab results reviewed: Yes I reviewed the patient's lab results. Labs: Laboratory Tests Range/Units 08/08/25 08/08/25 12:34 12:46 WBC (4.4-10.8) 10^3/uL 16.05 H RBC (3.93-5.22) 10^6/uL 4.12 Hgb (11.2-15.7) g/dL 12.5 Hct (36.0-46.0) % 36.8 MCV (80-95) fL 89 MCH (27.0-33.0) pg 30.3 MCHC (32.0-36.0) % 34.0 RDW (11.7-14.6) % 12.4 Plt Count (130-400) 10^3/uL 367 MPV (8.0-11.0) fL 8.6 Immature Gran % % 0.5 Neutrophils % % 71.2 Lymphocytes % % 17.3 Monocytes % % 7.7 Eosinophils % % 2.7 Basophils % % 0.6 Nucleated RBC % (0.0-0.3) % 0.0 Absolute Neutrophils (1.2-6.7) 10^3/uL 11.43 H Absolute Lymphocytes (1.2-3.4) 10^3/uL 2.78 Absolute Monocytes (0.1-0.8) 10^3/uL 1.24 H Absolute Eosinophils (0.0-0.7) 10^3/uL 0.43 Absolute Basophils (0.0-0.2) 10^3/uL 0.10 Sodium (136-145) mmol/L 136 Potassium (3.5-5.1) mmol/L 3.8 Chloride (98-107) mmol/L 102 Carbon Dioxide (21.0-32.0) mmol/L 24.2 Anion Gap (3-11) mmol/L 9.8 BUN (7-18) mg/dL 10 Creatinine (0.55-1.02) mg/dL 0.8 Est GFR (CKD-EPI 2020) (mL/min/1.73m2) 91.40 Glucose (74-106) mg/dL 99 Calcium (8.5-10.1) mg/dL 8.9 Magnesium (1.8-2.4) mg/dL 1.9 Total Bilirubin (0.2-1.0) mg/dL 0.8 AST (15-37) U/L 11 L ALT (14-59) U/L 18 Alkaline Phosphatase (46-116) U/L 92 Total Protein (6.4-8.2) g/dL 7.9 Albumin (3.4-5.0) g/dL 3.7 Lipase (<78) U/L 18 Urine Color (Yellow) Yellow Urine Clarity (Clear) Clear Urine pH (5-8) 6.0 Ur Specific [place] (1.005-1.025) 1.015 Urine Protein (Neg-Trace) mg/dL Negative Urine Ketones (Negative) mg/dL Negative Urine Blood (Negative) Negative Urine Nitrite (Negative) Negative Urine Bilirubin (Negative) Negative Urine Urobilinogen (Up to 0.2) mg/dL 0.2 Ur Leukocyte Esterase (Negative) Moderate H Urine RBC (0-2) HPF 0-2 Urine WBC (0-5) HPF 10-20 H Ur Epithelial Cells (Negative) HPF Many Urine Crystals (Negative) HPF Negative Urine Bacteria (Negative) HPF Few Urine Casts (Negative) LPF Negative Urine Mucus (Negative) Moderate Ur Culture Indicated? No/Sq. Contamination Urine Glucose (Negative) mg/dL Negative PFSH All Active Problems (Updated 08/08/25 @ 14:29 by Catherine Sweeney NP) Diverticulitis (Chronic) Dyspareunia in female (Acute) IUD surveillance (Acute) Right lower quadrant pain (Acute) Concussion (Acute) TMJ (dislocation of temporomandibular joint) (Acute) Pharyngitis (Acute) Pelvic floor dysfunction (Acute) Hematuria (Acute) Dysuria (Acute) Dysuria (Acute) 12/09/2020. Urinary frequency burning with voiding. Rx with Bactrim x3 days Chest pain (Acute) Migraine headache without aura (Acute) Depression (Chronic) GERD (gastroesophageal reflux disease) (Chronic) Not formally diagnosed by any endoscopy. Empirically treated with omeprazole. Medical History Tobacco user Dermatofibroma Anxiety Hip pain, right Menorrhagia Family history of breast cancer (06/04/16) Mother Dx at 59 Personal history of cervical dysplasia (06/08/13) 2010 TERRY II Family History Mother Essential hypertension Breast cancer HER2 Grandmother Pancreatic cancer Maternal Diabetes Grandmother Ovarian cancer paternal Daughter Migraines Social History Smoking/Tobacco Use Status: Current every day Quit status: not considering quitting Smoking risk assessment performed?: Yes Alcohol Intake: current Alcohol Intake frequency: 0-2 drinks per day Alcohol type: beer Drug use: Never Substance use type: does not use Housing: house Current gender identity: female Seatbelt use: always Do you feel safe at home: Yes Do you feel safe in your relationship?: Yes Female Reproductive History Menstrual Duration of menses: 8-10 days control method: progestin IUCD and other History History 2 Para 2 Hx # Term Pregnancies Multiple births Hx # Pregnancies Ectopic pregnancies AB induced Hx Number of Living Children AB spontaneous
--- NOTE | 2025-08-08 12:50 | DI.CT_ITS ---
Exam(s) CT ABDOMEN PELVIS W EXAM: CT ABDOMEN PELVIS W CLINICAL HISTORY: RLQ abd Pain. TECHNIQUE: Imaging Protocol: Axial computed tomography images with coronal and sagittal reformatted images were created and reviewed CONTRAST MATERIAL: Intravenous: Omnipaque-350 100cc Oral: None COMPARISON: CT CT THORAX ABD/PEL CTA from 10/09/2020 FINDINGS: VISUALIZED LUNG BASES: Mild increased markings in both lung bases. No pleural effusions. ABDOMEN: There is no ascites. LIVER: There are no focal hepatic lesions evident. No dilated intrahepatic ducts. GALLBLADDER/BILIARY: No obvious gallbladder pathology. CBD is not dilated. PANCREAS: No evidence of pancreatic mass nor dilatation of the pancreatic duct. SPLEEN: Spleen is not enlarged. No obvious intrasplenic lesions. Splenic and portal veins are patent. ADRENALS: There are no significant adrenal masses. KIDNEYS:No cysts evident. No solid renal masses. No calculi nor hydronephrosis.. ABDOMINAL AORTA: Abdominal aorta is not enlarged. LYMPH NODES:There is no retroperitoneal nor paraaortic adenopathy. ABDOMINAL WALL: No evidence of significant anterior abdominal wall nor inguinal hernia. GI: There is no evidence of bowel obstruction, free air, nor abscess. However, in the pelvis there is severe inflammatory involvement of an 8 cm length of the sigmoid, this in region that has diverticuli and os most probably acute diverticulitis. There is prominent edema of the sigmoid wall at this level and surrounding streaking. No obvious free air. No formed abscess at this time and there is no evidence of fistulous communication to the immediately subjacent urinary bladder. There is no gas in the portal venous system. PELVIS: GI: No evidence of appendicitis. LYMPH NODES: There is no intrapelvic nor inguinal adenopathy. REPRODUCTIVE: There is an IUD in satisfactory position in the uterus. Peripherally enhancing corpus luteal cyst in the right ovary incidentally noted, this measuring 1.4 cm. There is some fluid noted in the cul-de-sac. I suspect this is from the severe sigmoid pathology. URINARY BLADDER: No calculi nor obvious masses evident. No intraluminal gas OSSEOUS: No fractures and no significant osseous lesions. IMPRESSION: 1. Main acute findings here in the sigmoid colon where there is prominent edema along an 8 cm length of bowel at this level, this in region of sigmoid diverticuli. Most probable diagnosis is severe acute diverticulitis. There is abundant surrounding fat streaking and there is some free fluid in the dependent aspect of the pelvis. This patient is at high risk for developing an abscess. 2. Adjacent urinary bladder appears unremarkable. 3. There is an IUD in satisfactory position in the uterus. 4. No clinically significant ovarian findings. Report called by myself to ER 08/08/2025 at 2:21 p.m. RADIATION DOSE DELIVERED: 598.19mGy.cm Total DLP DATA REPOSITORY: All CT scans at this facility are submitted to the National Radiology Data Registry (NRDR) Dose Index Registry (DIR) with the [employer] (A[employer]). RADIATION OPTIMIZATION: All CT scans at this facility use at least one of these dose optimization techniques: automated exposure control; mA and/or kV adjustment per patient size (includes targeted exams where dose is matched to clinical indication); or iterative reconstruction.
[2025-08-08 13:00] LABS: Abs Immature Grans 0.08 10^3/uL (0.0-0.06); HCT 36.8 % (36.0-46.0); HGB 12.5 g/dL (11.2-15.7); Immature Grans % 0.5 %; MCH 30.3 pg (27.0-33.0); MCHC 34.0 % (32.0-36.0); MCV 89 fL (80-95); MPV 8.6 fL (8.0-11.0); Platelet Count 367 10^3/uL (130-400); RBC 4.12 10^6/uL (3.93-5.22); RDW 12.4 % (11.7-14.6); RDW-SD 40.5 fL; WBC 16.05 10^3/uL (4.4-10.8)
[2025-08-08 13:08] LABS: Glucose Negative (Negative)
[2025-08-08 13:12] LABS: Lipase 18 U/L (<78)
[2025-08-08 13:18] LABS: ALT 18 U/L (14-59); AST 11 U/L (15-37); Albumin 3.7 g/dL (3.4-5.0); Alkaline Phosphatase 92 U/L (46-116); Anion Gap 9.8 mmol/L (3-11); BUN 10 mg/dL (7-18); Bilirubin, Total 0.8 mg/dL (0.2-1.0); CO2 24.2 mmol/L (21.0-32.0); Calcium 8.9 mg/dL (8.5-10.1); Chloride 102 mmol/L (98-107); Estimated GFR 91.40 (mL/min/1.73m2); Glucose 99 mg/dL (74-106); Magnesium 1.9 mg/dL (1.8-2.4); Potassium 3.8 mmol/L (3.5-5.1); Sodium 136 mmol/L (136-145); Total Protein 7.9 g/dL (6.4-8.2)
[2025-08-08 13:28] LABS: RBC 0-2 HPF (0-2)
[2025-08-08] MEDS: Normal Saline - Diluent 50 ML VIAL IJ (13:50)
[2025-08-08] MEDS: Omnipaque 350 MG/ML 100 ML BTL IJ (13:51)
[2025-08-08] MEDS: Normal Saline Flush 10 ML SYR IVP (13:53)
[2025-08-08] MEDS: Ciprofloxacin 500 MG TAB PO (14:39)
[2025-08-08] MEDS: metroNIDAZOLE 500 MG TAB PO (14:39)
[2025-08-08] MEDS: Ondansetron O.D.T. 4 MG TABEF, 3 TABS/BTL PO (14:39)
== END 2025-08-08 14:45 | disposition home or self-care (01) ==
PROVIDERS: Emergency Provider Registered Nurse Emergency; PCP Nurse Practitioner Family
DX: K57.92 Diverticulitis of intestine, part unspecified, without perforation or abscess without bleeding (principal); R10.31 Right lower quadrant pain; R10.11 Right upper quadrant pain; R11.0 Nausea
CPT/HCPCS: 99284; 99285; 80053; 83690; 74177; 81003; 81015; 83735; 85025; 85610; J3490